=== PATIENT | male | born 1980 | race Caucasian/White ===

== ENCOUNTER 2022-01-29 09:00 | Emergency (ER) | payer OTHER, SELFPAY ==
--- NOTE | ~2022-01-29 | US_ITS ---
EXAMINATION: US VENOUS ULTRASOUND WITH DOPPLER LOWER EXTREMITY, LEFT CLINICAL INFORMATION: Left lateral calf pain and warmth. History of trauma. COMPARISON: None TECHNIQUE: Ultrasound of the deep veins is performed from the hip to the calf with compression sonography and color and pulse Doppler assessment. Spectral analysis with color-flow imaging is performed. FINDINGS: There is normal venous compression and respiratory variation and augmented flow. The visualized common femoral vein, superficial femoral vein, profunda femoral vein, popliteal vein, and the trifurcation region shows no evidence of deep venous thrombosis. There is no significant popliteal fossa cyst. There is a small hypoechoic area with septations in mid midcalf region where corresponding to the clinically palpable lump region. It most likely represents a small hematoma. If the patient's symptoms persist, followup ultrasound in 5 days 7 days might be of value to exclude proximal propagation from a non-visualized calf vein. US/US venous duplex LE IMPRESSION: No DVT demonstrated in the left lower extremity. There is a small hypoechoic area midcalf region corresponding to clinically palpable lump likely hematoma.
[2022-01-29 10:02] VITALS: BP 122/73; PULSE 65; RESP 18; TEMP 36.3; O2SAT 100; BMI 24.3
[2022-01-29 12:00] VITALS: BP 117/63; PULSE 63; RESP 18; TEMP 37.2; O2SAT 98
--- NOTE | 2022-01-29 12:48 | PC.NURSE ---
patient a&ox3, family at bedside, pt states he suffered a fall about a month ago, is awaiting surgery for left clavical fracture, pt states currently he still feels foggy and has left lower leg discomfort- not actual pain, pt states his left lower leg has a hard lump that occurred after his fall, this nurse assessed area noted to be a hard lump when palpated to left lower extremity- normal in color at this time, vitals currently stable, call manriquez within reach, will continue to monitor.
--- NOTE | 2022-01-29 13:11 | ED_ITS ---
HPI - General Adult General Chief complaint: General Medical Stated complaint: follow up on concussion Time Seen by Provider: 01/29/22 12:40 Source: patient Mode of arrival: ambulatory Limitations: no limitations History of Present Illness HPI narrative: 41-year-old male who presents with his mother for a head injury that occurred on 01/06/2022. Patient fell 15 ft from a ladder onto his head and had a positive lo ss of consciousness. He lost consciousness for minutes. It was a mechanical fall. Patient injured his left lower extremity and his left clavicle. Patient was seen at [facility] and had a noncontrast head CT, noncontrast CT of facial bones a noncontrast CT of cervical spine. There was no acute intracranial abnormality, no facial bone fracture, no acute osseous abnormality within the cervical spine A fracture of the lateral cuff lateral aspect of the left clavicle with displacement was demonstrated with x-ray. Chest x-ray was negative for any rib fracture, left lower extremity x-ray and ultrasound were negative for fracture and DVT SInce January 06, patient has had foggy thinking, difficulty remembering things, and increased fatigue. He feels mildly dizzy when he sits up but the dizziness goes away in a few seconds. His left leg was bruised 20 fell, now there is a hard painful lump in his left leg. Denies headache, nausea, vomiting, chest pain, shortness of breath, cough Pain he is scheduled for surgery of his left collarbone with [facility]. They have already seen and evaluated him for that Related Data Allergies Allergy/AdvReac Type Severity Reaction Status Date / Time No Known Allergies Allergy Verified 01/29/22 10:02 Review of Systems Constitutional: Constitutional: Denies body ache(s), Denies chills, Denies fatigue, Denies fever(s), Denies headache(s), Denies malaise and Denies weakness Eyes: Eyes: Denies diplopia and Denies loss of vision ENT: Denies vertigo, Reports dizziness, Denies otalgia, Denies headache(s), Denies mouth pain, Denies disequilibrium, Denies post nasal drip, Denies sinus pain, Denies sinus pressure, Denies sore throat and Denies throat swelling Cardiovascular: Cardiovascular: Denies chest pain, Denies syncope, Denies leg edema, Denies lightheadedness, Denies Loss of Consciousness, Denies palpitations and Denies dyspnea Respiratory: Respiratory: Denies chest congestion, Denies cough and Denies dyspnea Gastrointestinal: Gastrointestinal: Denies abdominal pain, Denies hematochezia, Denies constipation, Denies diarrhea and Denies vomiting Musculoskeletal: Musculoskeletal: Denies abnormal gait, Reports arthralgias and Denies tingling Neurologic: Denies Abnormal speech present, Denies abnormal gait, Denies confusion, Denies vertigo, Reports dizziness, Denies syncope, Denies headache(s), Denies lack of coordination, Denies focal weakness, Denies loss of vision, Reports memory loss, Denies seizure-like activity, Denies Sensory deficit (Neuro), Denies tingling, Denies paresthesias, Denies disequilibrium, Denies weakness and Reports other (Foggy thinking, forgetfulness) Psychiatric: Psychiatric: Denies anxiety, Denies confusion, Denies depression and Reports memory loss Endocrine: Endocrine: Denies fatigue and Denies palpitations Allergic/Immunologic: Allergic/Immunologic: Denies throat swelling PMFSH Social History Social History Advance Directives: No Advance Directives Information Provided: No Physical Exam ED Vital Signs: Vital Signs - 24 hr 01/29/22 10:02 01/29/22 12:00 01/29/22 15:30 Temperature 97.4 F 99.0 F 98.6 F Pulse Rate 65 63 77 Respiratory Rate 18 18 16 Blood Pressure 122/73 117/63 124/76 Pulse Oximetry 100 98 99 BMI result Body Mass Index 24.3 Const General: no acute distress and awake; No confusion Nutritional Appearance: well nourished Orientation/consciousness: patient oriented x3 and No confusion Limitations: no limitations [facility] Head: Yes normal to inspection, Yes normocephalic and Yes atraumatic Ears: hearing grossly normal bilaterally, external ears normal, TM's normal bilaterally and EAC's normal General nose exam: Normal external nose present Face and sinus: Yes normal facial exam and Yes sinuses nontender Mouth: Normal oral and palatal mucosa present Throat: Yes posterior oropharynx normal Eyes Conjunctivae: conjunctivae normal Pupils: Equal, round and reactive pupils present EOM: EOMs intact bilaterally Neck Neck: Yes full ROM, Yes no lymphadenopathy and Yes supple Chest Other: Tender to left ribs, negative chest x-ray done in December at [facility] Chest palpation & inspection: normal inspection of the chest Resp Effort & Inspection: normal respiratory effort and able to speak in complete sentences Auscultation: clear to auscultation bilaterally, no crackles, no rales, no rhonchi and no wheezes Cardio Rate: regular rate Rhythm: regular rhythm Heart sounds: S1 normal heart sound present and S2 normal heart sound present GI Inspection: Yes normal to inspection Palpation (GI): Soft to palpation, nontender, no guarding and not rigid Percussion: Yes normal to percussion Auscultation: normal bowel sounds Back/Spine/Pelvis Cervical Spine: normal cervical lordosis, cervical ROM normal, No Cervical spine tenderness, No step off deformity and No cervical ROM abnormal Thoracic/Lumbar Spine: No thoracic spinal tenderness and No lumbar spinal tenderness Skin Other: Warm, swollen lateral left calf Neuro General: patient oriented x3 and No confusion Cranial nerves: Yes CN's II-XII intact bilaterally, Yes Facial sensation intact/muscles of mastication intact, Yes Equal, round and reactive pupils present, Yes Normal accommodation reflex present, Yes Bilaterally intact EOM present, Yes Nystagmus not present, Yes Normal facial strength present, Yes Midline tongue present, Yes Ability to bilaterally rotate head present and Yes Ability to bilaterally elevate shoulders present Cognition (Neuro): normal cognition Speech: No Abnormal speech present Gait exam (Neuro): Normal gait present Motor exam (neuro): 5/5 motor strength present throughout and Pronator motor f unction not present Sensory Exam: No Sensory deficit (Neuro) Deep tendon reflexes (DTR's): Right patellar reflex intensity grade: 1+ and Left patellar reflex intensity grade: 1+ Coordination: [id number] test normal and [id number] test normal Romberg Test: Negative Pupils: Normal pupillary reactivity/response: bilateral Extrem Left upper extremity: normal capillary refill, no joint enlargement and shoulder/upper arm Details: inspection abnormal, tenderness and axillary nerve sensory function normal; Negative for no unsual warmth; No no edema Psych Appearance: grossly normal Affect: normal affect Attitude: cooperative Thought process: Normal thought process present Course Course Course Narrative: 41-year-old male who presents for foggy thinking, difficulty remembering things, and increased fatigue since he fell from a ladder on January 06. Patient was worked up at [facility], CT of facial bones, head, neck, left leg x-ray, all were negative. Patient has a left clavicle fracture. On exam, patient has a normal neurological exam, he is tender over his left clavicle and is guarding his left shoulder, he has a lump and warm area in his lateral left calf Will get ultrasounds, will refer to Neurology, discussed utility of re-imaging CT head/neck with Dr Wood, but Dr Wood stated if CT scans were negative, which they were, this is most likely post concussive syndrome Reevaluation(s) Reevaluation #1: US/US venous duplex LE LT IMPRESSION: No DVT demonstrated in the left lower extremity. ? There is a small hypoechoic area midcalf region corresponding to clinically palpable lump likely hematoma. Will have patient follow-up with neurology and follow-up with orthopedics as he is scheduled to do so Discharge Plan Discharge Clinical Impression: Post concussive syndrome Patient Disposition: Home, Self-Care Instructions: Post Concussion Syndrome (ED) Additional Instructions: Please follow-up with orthopedics as planned. Please call [phone], this is our neurologist at [facility], although I have referred you as well and they should be calling you. Please return to emergency room if you have worsening symptoms, chest pain, shortness of breath, or any other new or concerning symptoms Referrals: Casey Herron MD [Physician] -
--- NOTE | 2022-01-29 13:51 | PC.NURSE ---
ultrasound at bedside
[2022-01-29 15:30] VITALS: BP 124/76; PULSE 77; RESP 16; TEMP 37; O2SAT 99
== END 2022-01-29 15:45 | disposition home or self-care (01) ==
PROVIDERS: Emergency Provider Emergency Medicine
DX: F07.81 Postconcussional syndrome (principal); M79.662 Pain in left lower leg; S42.032D Displaced fracture of lateral end of left clavicle, subsequent encounter for fracture with routine healing; W11.XXXD Fall on and from ladder, subsequent encounter
CPT/HCPCS: 93971; 99284

== ENCOUNTER 2022-09-26 20:49 | Emergency (ER) | payer BC, SELFPAY ==
--- NOTE | ~2022-09-26 | XR_ITS ---
EXAMINATION: XR CHEST CLINICAL INFORMATION: Chest pressure COMPARISON: None TECHNIQUE: Frontal view of the chest was obtained. FINDINGS: No significant abnormality is noted involving the heart, lungs, mediastinum, bony thorax or soft tissues. XR/XR chest 1V IMPRESSION: Unremarkable examination.
[2022-09-26 20:54] VITALS: BP 126/74; PULSE 82; RESP 20; TEMP 37; O2SAT 100; BMI 24.3
--- NOTE | 2022-09-26 20:59 | ECG_ITS ---
Test Reason : chest pain Blood Pressure : / mmHG Vent. Rate : 080 BPM Atrial Rate : 080 BPM P-R Int : 134 ms QRS Dur : 100 ms QT Int : 370 ms P-R-T Axes : 063 069 066 degrees QTc Int : 426 ms Normal sinus rhythm with sinus arrhythmia Normal ECG No previous ECGs available Referred By: Generic ED Physician Electronically Signed By:MICKY PAIGE
[2022-09-26 21:27] LABS: Basophils Percent Auto 0.4 % (0-2); Eosinophils Absolute Auto 0.2 X10*3/uL (0.0-0.4); Hematocrit 42.5 % (42.0-52.0); Hemoglobin 14.7 g/dl (14.0-18.0); Imm Gran Abs Auto 0.03 X10*3/uL (0.00-0.03); Imm Gran Pct Auto 0.4 % (0.0-0.4); Lymphocytes Absolute Auto 2.4 X10*3/uL (1.2-4.9); Lymphocytes Percent Auto 28.4 % (20-40); MANUAL DIFF FLAG NO; Mean Corpuscular HGB Conc 34.6 g/dl (31.0-36.0); Mean Corpuscular Hemoglobin 32.7 pg (27.0-33.0); Mean Corpuscular Volume 94.7 fL (80.0-98.0); Mean Platelet Volume 9.7 fL (9.4-12.4); Monocytes Absolute Auto 0.7 X10*3/uL (0.1-1.2); Monocytes Percent Auto 8.2 % (2-11); Neutrophils Absolute Auto 5.1 x10*3/uL (2.0-8.3); Neutrophils Percent Auto 60.6 % (45-73); Platelet Count 236 X10*3/uL (160-400); Red Blood Count 4.49 X10*6/uL (4.60-5.80); Red Cell Distribution Width 12.4 % (11.0-16.0); White Blood Count 8.4 X10*3/uL (4.8-10.8)
[2022-09-26 21:39] LABS: Anion Gap 16 (12-20); Blood Urea Nitrogen 13 mg/dL (9-16); Calcium 9.8 mg/dL (8.4-10.2); Carbon Dioxide 25 mmol/L (22-29); Chloride 101 mmol/L (96-108); Creatinine Clr Calc Pharmacy 104.5; Estimated Glomerular Filt Rate > 60; Glucose Random 85 mg/dL (60-115); Potassium 3.9 mmol/L (3.3-5.1); Sodium 138 mmol/L (135-145)
[2022-09-26 21:44] LABS: COVID-19 Test Negative (Negative); IDNOW Serial# 16C4AD1C; IDNOW Serial# BCCEAD1C; Influenza A Negative (Negative); Influenza B2 Negative (Negative)
[2022-09-26 21:47] LABS: Troponin-I High Sensitivity < 3.5 ng/L (<3.5-35.0)
[2022-09-26 21:53] VITALS: BP 125/73; PULSE 66; RESP 16; O2SAT 98
[2022-09-26 22:38] VITALS: PULSE 87; RESP 16; O2SAT 97
--- NOTE | 2022-09-26 23:07 | ED.CHESTPAIN ---
HPI - Chest Pain General Chief Complaint: Chest Pain Stated Complaint: chest pain sore throat cough Time Seen by Provider: 09/26/22 21:35 Source: patient Mode of arrival: ambulatory History of Present Illness HPI narrative: This is a 42-year-old male who presents with 2-4 months of left-sided chest discomfort, most notably it is worse in the morning, he is an everyday heavy smoker with cough, no fevers/chills/night sweats/unexplained weight loss. Patient has not followed up with primary care provider because he is experiencing some difficulty with establishing care. Patient does endorse that he has previously fractured his left clavicle for which he required surgical intervention and since that time he has continued to have pain along that left shoulder into the base of his neck and the superior portion of the left anterior chest and he states that this has not changed. Related Data Previous Rx's Medication Instructions Recorded prednisone 50 mg tablet 50 mg PO DAILY 4 days #4 tabs 09/26/22 Allergies Allergy/AdvReac Type Severity Reaction Status Date / Time No Known Allergies Allergy Verified 09/26/22 20:59 Review of Systems Review of Systems: Pertinent positives and negatives as stated in HPI [facility] Past Medical History Source: nursing notes reviewed Social History Social History Alcohol intake: current Alcohol intake frequency: 0-2 drinks per day Alcohol type: beer Patient Tobacco Use Status: Current someday Tobacco user Smoked in Last 30 Days: Yes Use of substances other than those prescribed or required for medical reasons: Yes Substance Use Type: Marijuana Substance Use Frequency: Occasionally Advance Directives: No Advance Directives Information Provided: No Physical Exam Vital Signs: Vital Signs: Last Vital Signs Temp 98.6 F 09/26/22 20:54 Pulse 87 09/26/22 22:38 Resp 16 09/26/22 22:38 BP 125/73 09/26/22 21:53 Pulse Ox 98 09/26/22 21:53 O2 Del Method 09/26/22 21:53 BMI result Body Mass Index 24.3 VITAL SIGNS: Reviewed. GENERAL: Well developed, well nourished, in no acute distress. HEAD: Normocephalic/atraumatic EYES: PERRLA, EOMI EARS: Ext canals without abnormality OROPHARYNX: no oral lesions noted, posterior pharynx clear LUNGS: Normal breath sounds. No adventitious sounds or accessory muscle use. SpO2<98> CARDIOVASCULAR: Regular rate and rhythm without noted murmurs ABDOMEN: Soft, non-tender, non-distended with bowel sounds. MUSCULOSKELETAL: No tenderness, deformities, or effusions noted on gross inspection. EXTREMITIES: No cyanosis, clubbing or edema. SKIN: Inspection of the skin reveals no rashes NEUROLOGIC: Alert and oriented x 4. Strength and sensation to light touch were grossly intact x 4. Medications Administered Discontinued Medications Generic Name Dose Route Start Last Admin Trade Name Freq PRN Reason Stop Dose Admin Albuterol Sulfate 5 mg/ 0 mg 09/26/22 22:27 09/26/22 22:34 Ipratropium [place] 0.5 mg INHALE 09/26/22 22:28 1 each ONCE ONE Administration Medical Decision Making Medical Decision Making [facility] Narrative: PERC negative Heart score-1 42-year-old male with chronic left chest pain and a heavy smoker and no constitutional symptoms to suggest infectious etiology, atypical in nature and low clinical suspicion for cardiac etiology, patient has not been to see a physician in quite a while and suspect that he may be developing underlying COPD although there is no evidence hypoxia and suspected overlying component regional pain as he describes since the left clavicular fracture. I have reviewed and interpreted all workup as being negative for evidence of infection, anemia, electrolyte/renal dysfunction, troponin and EKG are inconsistent with underlying cardiac etiology. I did give the patient a DuoNeb treatment and on re-evaluation he is feeling much better and is otherwise discharged home in stable condition with suspicion that he is developing chronic lung disease and requires further outpatient management. Patient did receive a list of primary care clinics associated with [facility]. Differential Diagnosis Differential Diagnoses: The differential diagnosis associated with the presentation includes Please see discussion above Lab Data [facility] Lab Attestation statement: I reviewed the patient's lab results. Please see discussion above 09/26/22 21:18 09/26/22 21:18 Labs: Lab Results 09/26/22 09/26/22 09/26/22 Range/Units 21:18 21:18 21:18 WBC 8.4 (4.8-10.8) X10*3/uL RBC 4.49 L (4.60-5.80) X10*6/uL Hgb 14.7 (14.0-18.0) g/dl Hct 42.5 (42.0-52.0) % MCV 94.7 (80.0-98.0) fL MCH 32.7 (27.0-33.0) pg MCHC 34.6 (31.0-36.0) g/dl RDW 12.4 (11.0-16.0) % Plt Count 236 (160-400) X10*3/uL MPV 9.7 (9.4-12.4) fL Immature Gran % (Auto) 0.4 (0.0-0.4) % Neut % (Auto) 60.6 (45-73) % Lymph % (Auto) 28.4 (20-40) % [place] % (Auto) 8.2 (2-11) % Eos % (Auto) 2.0 (0-4) % Baso % (Auto) 0.4 (0-2) % Lymph # (Auto) 2.4 (1.2-4.9) X10*3/uL [place] # (Auto) 0.7 (0.1-1.2) X10*3/uL Eos # (Auto) 0.2 (0.0-0.4) X10*3/uL Baso # (Auto) 0.0 (0.0-0.2) X10*3/uL Abs Immat Gran (auto) 0.03 (0.00-0.03) X10*3/uL Absolute Neuts (auto) 5.1 (2.0-8.3) x10*3/uL Absolute Nucleated RBC 0.000 (0.0-0.012) X10*3/uL Nucleated RBC % (auto) 0.0 (0.0-0.2) /100WBC Sodium 138 (135-145) mmol/L Potassium 3.9 (3.3-5.1) mmol/L Chloride 101 (96-108) mmol/L Carbon Dioxide 25 (22-29) mmol/L Anion Gap 16 (12-20) BUN 13 (9-16) mg/dL Creatinine 1.13 (0.5-1.4) mg/dL Estim Creat Clear Calc 104.5 Estimated GFR > 60 Random Glucose 85 (60-115) mg/dL Calcium 9.8 (8.4-10.2) mg/dL Troponin I High Sens < 3.5 (<3.5-35.0) ng/L COVID-19 (ARCELIA) (Negative) COVID-19 Clin Com Influenza Type A (ALEJA) (Negative) Influenza Type B (ALEJA) (Negative) Influenza A & B Note 09/26/22 09/26/22 Range/Units 21:20 21:20 WBC (4.8-10.8) X10*3/uL RBC (4.60-5.80) X10*6/uL Hgb (14.0-18.0) g/dl Hct (42.0-52.0) % MCV (80.0-98.0) fL MCH (27.0-33.0) pg MCHC (31.0-36.0) g/dl RDW (11.0-16.0) % Plt Count (160-400) X10*3/uL MPV (9.4-12.4) fL Immature Gran % (Auto) (0.0-0.4) % Neut % (Auto) (45-73) % Lymph % (Auto) (20-40) % [place] % (Auto) (2-11) % Eos % (Auto) (0-4) % Baso % (Auto) (0-2) % Lymph # (Auto) (1.2-4.9) X10*3/uL [place] # (Auto) (0.1-1.2) X10*3/uL Eos # (Auto) (0.0-0.4) X10*3/uL Baso # (Auto) (0.0-0.2) X10*3/uL Abs Immat Gran (auto) (0.00-0.03) X10*3/uL Absolute Neuts (auto) (2.0-8.3) x10*3/uL Absolute Nucleated RBC (0.0-0.012) X10*3/uL Nucleated RBC % (auto) (0.0-0.2) /100WBC Sodium (135-145) mmol/L Potassium (3.3-5.1) mmol/L Chloride (96-108) mmol/L Carbon Dioxide (22-29) mmol/L Anion Gap (12-20) BUN (9-16) mg/dL Creatinine (0.5-1.4) mg/dL Estim Creat Clear Calc Estimated GFR Random Glucose (60-115) mg/dL Calcium (8.4-10.2) mg/dL Troponin I High Sens (<3.5-35.0) ng/L COVID-19 (ARCELIA) Negative (Negative) COVID-19 Clin Com See Note Influenza Type A (ALEJA) Negative (Negative) Influenza Type B (ALEJA) Negative (Negative) Influenza A & B Note See Note Independent Interpretation I performed an independent interpretation of an: EKG Interpretation: Normal sinus rhythm, HR-80, no STEMI, NC/QRS/QTC is within normal limits Radiology Impression Radiologist Impression: My interpretation is in agreement with radiology's impression imaging study. In addition, chest x-ray looks mildly suggestive of underlying chronic lung changes Discharge Plan Discharge Clinical Impression: Atypical chest pain, Cigarette smoker Patient Disposition: Home, Self-Care Instructions: Chest Pain (ED), How to Stop Smoking (ED), COPD (Chronic Obstructive Pulmonary Disease) (ED) Additional Instructions: 1. You have been discharged with a short course of steroids as well as an inhaler that you should use as needed for shortness of breath. 2. You have been provided with a list of primary care providers that are associated with the [facility], please feel free to reach out on Wednesday morning to set up an appointment for further care. Return to the ER for any worsening symptoms. Prescriptions: New prednisone 50 mg tablet 50 mg PO DAILY 4 Days Qty: 4 0RF
[2022-09-26 23:53] VITALS: BP 133/73; PULSE 71; RESP 16; TEMP 36.8; O2SAT 97
[2022-09-27] MEDS: predniSONE 10 MG TABLET 50 MG PO (00:03)
[2022-09-27] MEDS: Albuterol Sulfate 90 MCG 8 GM INHALER 2 PUFF INHALE (00:10)
== END 2022-09-27 00:14 | disposition home or self-care (01) ==
PROVIDERS: Emergency Provider Student in an Organized Health Care Education/Training Program
DX: R07.89 Other chest pain (principal); F17.210 Nicotine dependence, cigarettes, uncomplicated; F12.90 Cannabis use, unspecified, uncomplicated; Z20.822 Contact with and (suspected) exposure to COVID-19; Z20.828 Contact with and (suspected) exposure to other viral communicable diseases
CPT/HCPCS: 36415; 71045; 80048; 84484; 85025; 87502; 87635; 93005; 94640; 99285

== ENCOUNTER 2022-11-26 07:35 | Outpatient (REF) | payer BC, SELFPAY ==
[2022-11-26 12:06] LABS: Hematocrit 49.3 % (42.0-52.0); Hemoglobin 16.2 g/dl (14.0-18.0); Mean Corpuscular HGB Conc 32.9 g/dl (31.0-36.0); Mean Corpuscular Hemoglobin 31.6 pg (27.0-33.0); Mean Corpuscular Volume 96.1 fL (80.0-98.0); Mean Platelet Volume 10.2 fL (9.4-12.4); Platelet Count 296 X10*3/uL (160-400); Red Blood Count 5.13 X10*6/uL (4.60-5.80); Red Cell Distribution Width 12.6 % (11.0-16.0); White Blood Count 7.3 X10*3/uL (4.8-10.8)
[2022-11-26 15:55] LABS: Alanine Aminotransferase 29 U/L (0-40); Albumin Level 4.6 g/dL (3.5-5.0); Alkaline Phosphatase 65 U/L (39-117); Anion Gap 15 (12-20); Aspartate Amino Transferase 22 U/L (5-37); Bilirubin Total 0.5 mg/dL (0.0-1.0); Blood Urea Nitrogen 23 mg/dL (9-16); Calcium 9.5 mg/dL (8.4-10.2); Carbon Dioxide 27 mmol/L (22-29); Chloride 104 mmol/L (96-108); Cholesterol 249 mg/dL; Estimated Glomerular Filt Rate > 60; Glucose Fasting 89 mg/dL (60-99); HDL Cholesterol 57 mg/dL; LDL Cholesterol Calculated 164 mg/dl; Potassium 4.5 mmol/L (3.3-5.1); Sodium 141 mmol/L (135-145); Total Protein 7.3 g/dL (6.5-8.0); Triglycerides 144 mg/dL
[2022-11-26 15:59] LABS: TSH reflex Free T4 2.02 uIU/mL (0.32-4.0)
== END 2022-11-26 07:36 | disposition home or self-care (01) ==
LOC: HO.WFDLDS 07:35
PROVIDERS: Visit Provider Nurse Practitioner Family
DX: Z00.00 Encounter for general adult medical examination without abnormal findings (principal); Z20.2 Contact with and (suspected) exposure to infections with a predominantly sexual mode of transmission
CPT/HCPCS: 36415; 80053; 80061; 84443; 85027

== ENCOUNTER 2023-01-04 10:21 | Outpatient (REF) | payer BC, SELFPAY ==
[2023-01-04 12:28] LABS: HBc Num1 0.09 S/CO (0.00-0.79); HBsAGNum1 0.34 S/CO (0.00-0.99); HIV AB/AG Nonreactive (Nonreactive); HIV Num 1 0.06 S/CO (0.00-0.99); Hepatitis B Core Antibody Nonreactive (Nonreactive); Hepatitis B Surface Antigen Negative (Negative); ~HepC Num1 0.16 S/CO (0.00-0.79); ~Hepatitis B Surface Antibody NONREACTIVE (Nonreactive); ~Hepatitis C Antibody Nonreactive (Nonreactive)
[2023-01-04 12:30] LABS: Syphilis Screen Nonreactive (Nonreactive)
[2023-01-04 13:07] LABS: CT PCR NOT DETECTED (Not Detect.); NG PCR NOT DETECTED (Not Detect.)
== END 2023-01-04 10:22 | disposition home or self-care (01) ==
LOC: HO.WFDLDS 10:21
PROVIDERS: Visit Provider Nurse Practitioner Family
DX: Z11.4 Encounter for screening for human immunodeficiency virus [HIV] (principal); Z20.2 Contact with and (suspected) exposure to infections with a predominantly sexual mode of transmission
CPT/HCPCS: 0353U; 86704; 86706; 86780; 86803; 87340; 87389

== ENCOUNTER 2023-04-02 14:49 | Outpatient (AMB) | payer OTHER, SELFPAY ==
--- NOTE | 2023-04-02 14:53 | MHC.OFFVIS ---
Intake Vital Signs 04/02/23 15:02 BP 126/82 Blood Pressure Location Lt radial Position Sitting Pulse 80 Pulse Source Pulse Oximeter Pulse Oximetry (%) 95 Oxygen Delivery Method Room Air Intake Visit Reasons: MAT Intake Intake Note: the patient is here for a mat intake Political Reporter Required: No Allergies No Known Allergies Allergy (Verified 04/02/23 14:53) Do you need a note to return to daycare/school/sports/work: No HPI MAT Intake HPI Details Patient presents for intake and evaluation of alcohol use referred by PCP alligator trapper reviewed which includes substance use history Initially patient guarded and stated he was only here to see my options Currently on medical leave from work due to increase in drinking and stress associated with that providers in place Declines ATS referral Discussed PHP as an option in addition to Naltrexone to start to address alcohol use. Patient interested in this and will follow up with PHP Medical history Accident one year ago fell 15 feet on his head and had a seizure Family history of ETOH PFSH Medical History (Updated 03/16/23 @ 15:56 by Srini Deutsch CNP) Anxiety Depression No known health problems Surgical History (Updated 03/15/23 @ 16:17 by Emilie Lemon MA) History of open reduction and internal fixation (ORIF) procedure Family History Mother Alcoholism Father Alcoholism Social History Housing: House Alcohol intake: current Alcohol intake frequency: 0-2 drinks per day Alcohol type: beer Patient Tobacco Use Status: Current someday Tobacco user Tobacco use type: Cigarette e-Cigarette/Vaping Use: Never Used Substance Use Type: Marijuana service: No Current occupational status: employed Cognitive needs: No Hearing needs: No Vision needs: No Review of Systems Const Reports as per HPI Physical Exam Vital Signs: Last Vital Signs Pulse 80 04/02/23 15:02 BP 126/82 04/02/23 15:02 Pulse Ox 95 04/02/23 15:02 Oxygen Delivery Method Room Air 04/02/23 15:02 Const General: cooperative and anxious Assessment & Plan Assessment & Plan (1) Alcohol dependence: Code(s): F10.20 - Alcohol dependence, uncomplicated Plan: naltrexone 50mg QD patient to follow up with PHP risk reduction discussion follow up 3 weeks Medications: New naltrexone take 1/2 tab daily for 3 days then increase to one tab daily 50 mg PO DAILY 30 tabs 1RF Coding Level of Care Code New Pt Level 4 (28535) Diagnoses Alcohol dependence F10.20
[2023-04-02 15:02] VITALS: BP 126/82; PULSE 80; O2SAT 95
== END 2023-04-02 16:00 | disposition home or self-care (01) ==
LOC: HO.HCC 14:49
PROVIDERS: PCP Nurse Practitioner Family; Visit Provider Nurse Practitioner Psychiatric/Mental Health
DX: F10.20 Alcohol dependence, uncomplicated (principal)
CPT/HCPCS: 99204

== ENCOUNTER → 2023-04-02 14:49 | Outpatient (BNVA) | payer OTHER, SELFPAY | PROVIDERS: PCP Nurse Practitioner Family; Visit Provider Nurse Practitioner Psychiatric/Mental Health ==

== ENCOUNTER 2023-04-20 09:26 | Outpatient (AMB) | payer OTHER, SELFPAY ==
--- NOTE | 2023-04-20 09:35 | A.OFFVIS_ITS ---
Intake Vital Signs 04/20/23 09:44 BP 108/70 Blood Pressure Location Lt radial Position Sitting Pulse 59 Pulse Source Pulse Oximeter Pulse Oximetry (%) 99 Oxygen Delivery Method Room Air Intake Visit Reasons: MAT Visit Intake Note: The patient presents for a mat visit Mobile Sales Consultant Required: No Allergies No Known Allergies Allergy (Verified 04/02/23 14:53) Do you need a note to return to daycare/school/sports/work: No HPI MAT Visit HPI Details Patient presents for AUD treatment follow up Tolerating Naltrexone --finds it helpful with reducing alcohol intake Down to 2 beers per day (previously drinking 10-12 beers per night) Did not start PHP--reports he was told he did not qualify Still attending therapy weekly Would like to attend in on IOP or some other sort of program. [facility] Medical History (Updated 03/16/23 @ 15:56 by Srini Deutsch CNP) Anxiety Depression No known health problems Surgical History (Updated 03/15/23 @ 16:17 by Emilie Lemon MA) History of open reduction and internal fixation (ORIF) procedure Family History Mother Alcoholism Father Alcoholism Social History Housing: House Alcohol intake: current Alcohol intake frequency: 0-2 drinks per day Alcohol type: beer Patient Tobacco Use Status: Current someday Tobacco user Tobacco use type: Cigarette e-Cigarette/Vaping Use: Never Used Substance Use Type: Marijuana service: No Current occupational status: employed Cognitive needs: No Hearing needs: No Vision needs: No Review of Systems Const Reports as per HPI and Reports no additional complaints Physical Exam Vital Signs: Last Vital Signs Pulse 59 04/20/23 09:44 BP 108/70 04/20/23 09:44 Pulse Ox 99 04/20/23 09:44 Oxygen Delivery Method Room Air 04/20/23 09:44 Const General: cooperative, healthy appearing and no acute distress Psych Appearance: well kempt Speech and movement: Clear speech present Thought process: Normal thought process present Thought content: Normal thought content present Insight: Good insight present (Psych) Judgement: Good judgement present (Psych) Assessment & Plan Assessment & Plan (1) Alcohol dependence: Code(s): F10.20 - Alcohol dependence, uncomplicated Plan: * continue Naltrexone at current dose * Referral to be placed to [facility] * Follow up 2 weeks Coding Level of Care Code Est Pt Level 4 (92682) Diagnoses Alcohol dependence F10.20
[2023-04-20 09:44] VITALS: BP 108/70; PULSE 59; O2SAT 99
== END 2023-04-20 10:15 | disposition home or self-care (01) ==
LOC: HO.HCC 09:26
PROVIDERS: PCP Nurse Practitioner Family; Visit Provider Nurse Practitioner Psychiatric/Mental Health
DX: F10.20 Alcohol dependence, uncomplicated (principal)
CPT/HCPCS: 99214

== ENCOUNTER → 2023-04-20 09:26 | Outpatient (BNVA) | payer OTHER, SELFPAY | PROVIDERS: PCP Nurse Practitioner Family; Visit Provider Nurse Practitioner Psychiatric/Mental Health ==

== ENCOUNTER 2023-04-28 14:47 | Outpatient (AMB) | payer OTHER, SELFPAY ==
--- NOTE | 2023-04-28 14:57 | A.OFFVIS_ITS ---
Intake Intake Visit Reasons: STI Intake Note: New Patient presents for initial visit today for penile lesion Urology Medications: none Blood Thinner: none Plastic Surgery Assistant Required: No Accompanied by: Self / Same As Patient Allergies No Known Allergies Allergy (Verified 04/28/23 15:42) Medication List - Last Reconciled 04/28/23 by ANGIE Polanco naltrexone 50 mg PO DAILY varenicline PO PER PKG DIR HPI HPI Comments History of Present Illness Details Santos is a very pleasant 43-year-old male patient of Dr. Deutsch. He has a past medical history of anxiety and depression. He presents to the office today as a new patient for genital warts. In discussion with the patient today he reports noting one area of over growth to left side of the shaft of his penis over 10-15 years. However feels growth has increased in size over the last few years and is inquiring treatment. He otherwise denies any urinary issues. When asked he denies urinary urgency, urinary frequency, incontinence, nocturia, hematuria, dysuria, foul smelling urine, changes to urinary stream, flank pain, fever, and or chills. He is happy with his current voiding parameters. In assessment of the patient today one epidermal lesion approximately 5 mm in size noted to the left side of the shaft/base of the penis. Discussed obtaining HPV immunization. Discussed trimming verses shaving in genital area. In office urinalysis results reviewed with the patient today. He otherwise offers no issues or concerns at this time. [facility] Medical History Anxiety Depression No known health problems Surgical History History of open reduction and internal fixation (ORIF) procedure Family History Mother Alcoholism Father Alcoholism Social History Housing: House Alcohol intake: current Alcohol intake frequency: 0-2 drinks per day Alcohol type: beer Patient Tobacco Use Status: Current someday Tobacco user Tobacco use type: Cigarette e-Cigarette/Vaping Use: Never Used Substance Use Type: Marijuana service: No Current occupational status: employed Cognitive needs: No Hearing needs: No Vision needs: No Review of Systems Const All systems reviewed & are unremarkable except as noted in HPI and below Eyes Reports no additional complaints ENT Reports no additional complaints Card Reports no additional complaints Resp Reports no additional complaints GI Reports no additional complaints Reports as per HPI Musc Reports no additional complaints Neuro Reports no additional complaints Psych Reports as per HPI Endo Reports no additional complaints Josh/Lymph Reports no additional complaints Aller/Immun Reports no additional complaints Physical Exam Const General: cooperative, healthy appearing, comfortable, no acute distress, well developed, alert and awake Nutritional Appearance: average body habitus Orientation/consciousness: patient oriented x3 Limitations: no limitations HEENT Head: Yes normal to inspection, Yes normocephalic and Yes atraumatic Ears: hearing grossly normal bilaterally Eyes General: appearance normal, both eyes and all related structures Neck Neck: Yes normal visual inspection and Yes trachea midline Chest Chest palpation & inspection: normal inspection of the chest Resp Effort & Inspection: normal respiratory effort and able to speak in complete sentences Cardio Rate: regular rate GI Inspection: Yes normal to inspection Other: as noted in HPI General: Yes no CVA tenderness Back/Spine/Pelvis Back: no CVA tenderness Skin General skin exam: no rashes or lesions noted Neuro General: patient oriented x3 Extrem General: Yes normal to inspection Psych Appearance: grossly normal and well kempt Mental Status: mental status grossly normal Speech and movement: Normal speech and movement present and Clear speech present Affect: normal affect Attitude: cooperative Thought process: Normal thought process present Thought content: Normal thought content present Insight: Good insight present (Psych) Judgement: Good judgement present (Psych) Results AMB Urinalysis, Automated UA Leukoctes 0 Uriel/uL Last Edit by YOLLEGE on 04/28/23 15:16 UA Nitrite Last Edit by YOLLEGE on 04/28/23 15:16 UA Urobilinogen 0.2 mg/dL Last Edit by YOLLEGE on 04/28/23 15:16 UA Protein 0 mg/dL Last Edit by YOLLEGE on 04/28/23 15:16 UA pH 6.0 Last Edit by YOLLEGE on 04/28/23 15:16 UA Blood 0 Yg/uL Last Edit by YOLLEGE on 04/28/23 15:16 UA Specific [place] 1.005 Last Edit by Srikanth Peraza on 04/28/23 15:16 UA Ketone Negative Last Edit by Srikanth Peraza on 04/28/23 15:16 UA Bilirubin 0 mg/dL Last Edit by Srikanth Clancymichelle on 04/28/23 15:16 UA Glucose 0 mg/dL Last Edit by Srikanth Clancymichelle on 04/28/23 15:16 Results Reviewed Results Reviewed: Laboratory Last Values Urine pH (Auto) 6.0 04/28/23 14:59 Specific [place] (Auto) 1.005 04/28/23 14:59 Urine Protein (Auto) 0 mg/dL 04/28/23 14:59 Glucose (UA)(Auto) 0 mg/dL 04/28/23 14:59 Urine Ketones (Auto) Negative 04/28/23 14:59 Urine Blood (Auto) 0 Yg/uL 04/28/23 14:59 Urine Bilirubin (Auto) 0 mg/dL 04/28/23 14:59 Urine Urobilinogen (Auto) 0.2 mg/dL 04/28/23 14:59 Leukocyte Esterase (Auto) 0 Uriel/uL 04/28/23 14:59 Assessment & Plan Assessment & Plan (1) Genital lesion, male: Code(s): N50.89 - Other specified disorders of the male genital organs (2) Warts, genital: Code(s): A63.0 - Anogenital (venereal) warts Plan In office urinalysis results reviewed with the patient today; as noted above. Patient with one epidermal lesion approximately 5 mm in size noted to the left side of the shaft/base of the penis. Discussed removal of lesion/wart at length Discussed immunization of HPV Discussed trimming verses shaving in genital area. Dr. Olson in to assess Plan for excision of lesion with local anesthetic in minor surgery; discussed risks and benefits All questions were answered Follow up s/p Dr. Olsons order's; or sooner with any questions, concerns, and or issues. Orders: Orders AMB Urinalysis Automated 04/28/23 Z13.9 - Encounter for screening, unspecified Patient Instructions: The patient had an opportunity to ask questions regarding the treatment plan. All questions were answered. Physical exam, labs, and imaging were discussed and reviewed in detail. As well as risks, benefits, and discussion of treatment choices. No major barriers to understanding were identified. The patient expressed understanding and agreement with the above treatment plan. The patient was made aware they should contact our office by phone for worsening of their current condition, the appearance of new symptoms, or with any questions or concerns. Compliance is encouraged with any medications and follow up testing that is ordered. It is a privilege to be allowed the opportunity to participate in? your urological care.? Again, if you have any questions or concerns If you have any questions or concerns please do not hesitate to contact me. The office is [phone]. This note is constructed using voice recognition software. While every effort has been made to ensure accuracy rail grinder errors may have been included. Yours sincerely, SOURAV Polanco-PETE Coding Level of Care Code New Pt Level 3 (21330) Diagnoses Genital lesion, male N50.89 Warts, genital A63.0
== END 2023-04-28 15:38 | disposition home or self-care (01) ==
PROVIDERS: PCP Nurse Practitioner Family; Visit Provider Nurse Practitioner Family
DX: N50.89 Other specified disorders of the male genital organs (principal); A63.0 Anogenital (venereal) warts
CPT/HCPCS: 99203

== ENCOUNTER → 2023-04-28 14:47 | Outpatient (BNVA) | payer OTHER, SELFPAY | PROVIDERS: PCP Nurse Practitioner Family; Visit Provider Nurse Practitioner Family ==

== ENCOUNTER 2023-06-10 07:33 | Outpatient (REF) | payer OTHER, SELFPAY ==
[2023-06-10 12:15] LABS: Cholesterol 196 mg/dL (<200); HDL Cholesterol 69 mg/dL (>40); LDL Cholesterol Calculated 109 mg/dL (<100); Triglycerides 90 mg/dL (<150)
== END 2023-06-10 07:34 | disposition home or self-care (01) ==
LOC: HO.WFDLDS 07:33
PROVIDERS: Visit Provider Nurse Practitioner Family
DX: E78.00 Pure hypercholesterolemia, unspecified (principal)
CPT/HCPCS: 36415; 80061

== ENCOUNTER 2023-06-16 16:07 | Outpatient (AMB) | payer OTHER, SELFPAY ==
--- NOTE | 2023-06-16 16:11 | A.OFFPC_ITS ---
Vital Signs 06/16/23 16:13 Height 6 ft 4 in Weight 198 lb 6 oz BMI 24.1 BP 128/68 Blood Pressure Location Rt brachial Position Sitting Respiration 12 Pulse 107 H Pulse Source Pulse Oximeter Temp 97.5 F Temp Source Temporal Artery Scan Pulse Oximetry (%) 97 Oxygen Delivery Method Room Air Intake Visit Reasons: 3 mos anxiety, depression Asbestos Coverer Required: No Accompanied by: Self / Same As Patient Allergies No Known Allergies Allergy (Verified 06/16/23 16:29) Tobacco use date assessed: 03/15/23 Dental Screening Dental Screen Date: 06/16/23 Did you have a dental visit in the last 12 months?: Yes Did you have a dental problem in the last 6 months where you did not have access to dental care?: No Was dental information given to patient?: Patient has dentist HPI HPI Comments History of Present Illness Details 43-year-old male presents for anxiety an d depression follow-up He notes he has been seeing his therapist weekly and found that to be very effective in managing his symptoms. He does not wish to initiate medication treatment. He states that he tried psychotropic medications in the past and failed. He admits to drinking more alcohol that before; he has been drinking 15-18 beers daily for the past 1 month. He states that I am an alcoholic and I know it. He was referred to [facility] addiction medication; states he stopped going because he did not have his FMLA to have time away from work while being treated. He notes he intends to take time off from work next year and try and help patient addiction medicine program for his alcohol dependence. He denies acute symptoms at this time. [facility] Medical History Depression Anxiety No known health problems Surgical History History of open reduction and internal fixation (ORIF) procedure Family History Mother Alcoholism Father Alcoholism Social History Housing: House Alcohol intake: current Alcohol intake frequency: 0-2 drinks per day Alcohol type: beer Patient Tobacco Use Status: Current someday Tobacco user Tobacco use type: Cigarette e-Cigarette/Vaping Use: Never Used Substance Use Type: Marijuana service: No Current occupational status: employed Cognitive needs: No Hearing needs: No Vision needs: No Questionnaire PHQ-9 Over the last 2 weeks, how often have you been bothered by any of the following problems? 1. Little interest or pleasure in doing things: more than half the days 2. Feeling down, depressed, or hopeless: more than half the days 3. Trouble falling or staying asleep, or sleeping too much: more than half the days 4. Feeling tired or having little energy: more than half the days 5. Poor appetite or overeating: more than half the days 6. Feeling bad about yourself - or that you are a failure or have let yourself or your family down: more than half the days 7. Trouble concentrating on things, such as reading the newspaper or watching television: more than half the days 8. Moving or speaking so slowly that other people could have noticed. Or the opposite - being so fidgety or restless that you have been moving around a lot more than usual: more than half the days 9. Thoughts that you would be better off or of hurting yourself in some way: not at all Total score: 16 Depression Screening Interpretation: Positive Depression Screening Follow-up: Existing condition and In treatment Source: Developed by Drs. Jesse Hackett, Dina Colon, Grant Hassan and colleagues, with an educational sabrina from [employer]. Thrive Questionnaire Date Thrive assessed: 11/24/22 JUVENTINO-7 AMB Questionnaire JUVENTINO-7 Date JUVENTINO - 7 assessed: 03/15/23 Feeling nervous, anxious, or on edge: 2 = More than half the days Not being able to stop or control worryin = More than half the days Worrying too much about different things: 2 = More than half the days Trouble relaxin = More than half the days Being so restless that it is hard to sit still: 2 = More than half the days Becoming easily annoyed or irritable: 2 = More than half the days Feeling afraid as if something awful might happen: 2 = More than half the days Total JUVENTINO-7 score (0-4 normal; 5-9 mild; 10-14 moderate; 15-21 severe): 14 Source: Developed by Dina ZapataW. Isaiah, Grant Hassan and colleagues, with an educational sabrina from [employer]. Review of Systems Const Details: Const Denies chills, Denies fatigue, Denies fever(s), Denies headache(s) and Denies weakness ENT Denies dizziness and Denies headache(s) Card Denies chest pain, Denies lightheadedness, Denies dyspnea and Denies other (Palpitations) Resp Denies cough, Denies dyspnea, Denies wheezing and Denies other ( shortness of breath) GI Denies abdominal pain, Denies melena, Denies hematochezia, Denies change in bowel habits, Denies dyspepsia and Denies nausea Denies hematuria and Denies dysuria Musc Denies abnormal gait, Denies myalgias, Denies arthralgias, Denies numbness and Denies tingling Skin/Breast Denies rash, Denies unusual bruising and Denies wounds Neuro Denies abnormal gait, Denies dizziness, Denies headache(s), Denies memory loss, Denies numbness, Denies Sensory deficit (Neuro), Denies tingling and Denies weakness Psych Denies anxiety, Denies depression, Denies memory loss Endo Denies cold intolerance, Denies fatigue, Denies heat intolerance, Denies polydipsia and Denies polyuria Aller/Immun Denies wheezing Physical exam (Primary Care) Vital Signs: Last Vital Signs Temp 97.5 F 06/16/23 16:13 Pulse 107 H 06/16/23 16:13 Resp 12 06/16/23 16:13 BP 128/68 06/16/23 16:13 Pulse Ox 97 06/16/23 16:13 Oxygen Delivery Method Room Air 06/16/23 16:13 BMI result Body Mass Index 24.1 Tobacco/Smoking Status: Tobacco use Status Tobacco use date assessed 03/15/23 06/16/23 16:23 Patient Tobacco Use Status Current someday Tobacco 06/16/23 16:23 Tobacco use type Cigarette 06/16/23 16:23 e-Cigarette/Vaping Use Never Used 06/16/23 16:23 PHQ-9: PHQ-9 Score PHQ-9: Total score 16 06/16/23 16:23 Depression Screening Interpretation: Positive Depression Screening Follow-up: Existing condition and In treatment Thrive Assessment: Date of Thrive Assessment Date Thrive assessed 11/24/22 06/16/23 16:23 Const Other: General: no acute distress and well developed Nutritional Appearance: well nourished Orientation/consciousness: patient oriented x3 [facility] Head: Yes normocephalic and Yes atraumatic Eyes General: appearance normal, both eyes and all related structures Pupils: Equal, round and reactive pupils present EOM: EOMs intact bilaterally Resp Effort & Inspection: normal respiratory effort Auscultation: clear to auscultation bilaterally Cardio Rate: regular rate Rhythm: regular rhythm Heart sounds: S1 normal heart sound present, S2 normal heart sound present, no gallops, no murmurs and no rubs GI Palpation (GI): No Abdominal aortic bruit present, Soft to palpation, nontender, No hepatosplenomegaly present and No Rebound tenderness present Auscultation: normal bowel sounds General: Yes no CVA tenderness Back/Spine/Pelvis Back: no CVA tenderness Cervical Spine: cervical ROM normal and No Cervical spine tenderness Thoracic/Lumbar Spine: thoraco-lumbar ROM normal, No pain with thoraco-lumbar ROM, No thoracic spinal tenderness and No lumbar spinal tenderness Extrem General: Yes normal to inspection, No edema and No calf tenderness Skin General: warm and dry. Normal skin color. Normal skin turgor Lesions: no lesions Rashes: no rashes Trauma: no lacerations or abrasions Wounds: no wounds Nails: normal Neuro General: patient oriented x3, gait normal and no focal neuro deficit Cranial nerves: Yes Equal, round and reactive pupils present Cognition (Neuro): normal cognition Gait exam (Neuro): Normal gait present Sensory Exam: No Sensory deficit (Neuro) Psych Appearance: grossly normal Affect: normal affect Attitude: cooperative Thought process: Normal thought process present Assessment and Plan Assessment & Plan (1) Situational mixed anxiety and depressive disorder: Code(s): F43.23 - Adjustment disorder with mixed anxiety and depressed mood Plan: His PHQ-9 and JUVENTINO-7 scores revealed moderately severe depression and moderate anxiety respectively Continue to follow up with therapist as planned Routine exercise encouraged Declines medication treatment at this time Follow-up with PCP with worsening or new symptoms Verbalized understanding and agreed with treatment plan. (2) Hypercholesteremia: Code(s): E78.00 - Pure hypercholesterolemia, unspecified Plan: His lipid levels significantly improved from previous levels. Current triglyceride level is 90, total cholesterol, 196, LDL 109, and HDL 69 He notes he has been making healthy dietary choices Advised to limit foods high in saturated fat and avoid foods high trans fat Routine exercise encouraged Verbalized understanding and agreed with plan. (3) Alcohol dependence: Code(s): F10.20 - Alcohol dependence, uncomplicated Plan: He admits to drinking more alcohol that before; he has been drinking 15-18 beers daily for the past 1 month. He states that I am an alcoholic and I know it. He was referred to [facility] addiction medication; states he stopped going because he did not have his FMLA to have time away from work while being treated. He notes he intends to take time off from work next year and try and help patient addiction medicine program for his alcohol dependence. Instructed on the health risks and complication of excessive alcohol intake Advised to cut down or avoid alcohol consumption He may notify his PCP for a new referral to addiction medicine if he wants to try again Verbalized understanding and agreed with the plan. Coding Level of Care Code Est Pt Level 3 (35938) Diagnoses Situational mixed anxiety and depressive disorder F43.23 Hypercholesteremia E78.00 Alcohol dependence F10.20
[2023-06-16 16:13] VITALS: BP 128/68; PULSE 107; RESP 12; TEMP 36.4; O2SAT 97; BMI 24.1
== END 2023-06-16 16:43 | disposition home or self-care (01) ==
PROVIDERS: PCP Nurse Practitioner Family; Visit Provider Nurse Practitioner Family
DX: F43.23 Adjustment disorder with mixed anxiety and depressed mood (principal); E78.00 Pure hypercholesterolemia, unspecified; F10.20 Alcohol dependence, uncomplicated
CPT/HCPCS: 99213

== ENCOUNTER 2023-06-18 11:23 | Day surgery (SDC) | payer OTHER, SELFPAY ==
[2023-06-18 11:55] VITALS: BP 131/68; PULSE 67; RESP 16; TEMP 36.5; O2SAT 100
[2023-06-18 11:59] VITALS: BMI 24.3
--- NOTE | 2023-06-18 12:45 | P.OP_ITS ---
Operative Note Operative Note Date of Service: 06/18/23 Narrative: PreOperative Diagnosis: Penile condyloma left base Post Operative Diagnosis: Penile condyloma Procedure: Excision penile condylomata greater than 1 cm Surgeon: Dr Zbigniew Olson Anesthesia: Local anesthetic Indications for procedure: Penile condyloma approximately 1.5 cm at left base of penis Procedure: After informed consent was verified the patient was brought to the minor procedure room and placed in a supine position. The patient was prepped and draped in a sterile fashion. Safety pause time-out was performed. Anesthesia using local with epi infiltrated under the penile lesion base. Fifteen blade used for sharp dissection and removal of lesion remaining superfic ial. 4-0 chromic interrupted sutures used for skin reapproximation Patient tolerated procedure well. Minimal bleeding For 6 week follow-up Pathology: Penile lesion Drains: Dressing
[2023-06-18 12:46] VITALS: BP 132/83; PULSE 69; RESP 16; TEMP 36.5; O2SAT 99
== END 2023-06-18 11:24 | disposition home or self-care (01) ==
LOC: HO.SSS 09-03 09:07
PROVIDERS: Visit Provider Urology
PROC: (CPT 54055; principal; 2023-06-18 12:00)
DX: A63.0 Anogenital (venereal) warts (principal); E78.00 Pure hypercholesterolemia, unspecified; F17.210 Nicotine dependence, cigarettes, uncomplicated; F12.90 Cannabis use, unspecified, uncomplicated
CPT/HCPCS: 54060; 88305

== ENCOUNTER → 2023-06-18 11:23 | Outpatient (BNV) | payer OTHER, SELFPAY | PROVIDERS: Visit Provider Urology | DX: A63.0 Anogenital (venereal) warts (principal) | CPT/HCPCS: 54060 ==

== ENCOUNTER 2023-07-16 09:35 | Outpatient (AMB) | payer OTHER, SELFPAY ==
--- NOTE | 2023-07-16 09:40 | A.OFFVIS_ITS ---
Intake Intake Visit Reasons: 4 week (wart removal) Intake Note: Pt presents to the office today for a 4 week wart removal post op follow up Urology Medications: none Blood Thinner: none Senior Climate Advisor Required: No Accompanied by: Self / Same As Patient Allergies No Known Allergies Allergy (Verified 07/16/23 09:51) Medication List - Last Reconciled 07/16/23 by ANGIE Polanco No Known Home Meds HPI HPI Comments History of Present Illness Details Santos is a very pleasant 43-year-old male patient of Dr. Deutsch. He has a past medical history of anxiety, depression and alcohol depend ence. He presents to the office today for follow-up. Of note, patient recently underwent left-sided scrotal wart removal with Dr. Olson on 06/18. He reports to be doing and feeling well. In assessment of the patient today site is well healed with no drainage, open areas, and or redness noted. He otherwise denies any urinary issues. When asked he denies urinary urgency, urinary frequency, incontinence, nocturia, hematuria, dysuria, foul smelling urine, changes to urinary stream, flank pain, fever, and or chills. He is happy with his current voiding parameters. Discussed importance of obtaining HPV immunization. Discussed trimming verses shaving in genital area. He otherwise offers no issues or concerns at this time. REPLACED BY [facility] Medical History Depression Anxiety No known health problems Surgical History History of open reduction and internal fixation (ORIF) procedure Family History Mother Alcoholism Father Alcoholism Social History Housing: House Alcohol intake: current Alcohol intake frequency: 0-2 drinks per day Alcohol type: beer Patient Tobacco Use Status: Current someday Tobacco user Tobacco use type: Cigarette e-Cigarette/Vaping Use: Never Used Substance Use Type: Marijuana service: No Current occupational status: employed Cognitive needs: No Hearing needs: No Vision needs: No Review of Systems Eyes Reports no additional complaints ENT Reports no additional complaints Card Reports no additional complaints Resp Reports no additional complaints GI Reports no additional complaints Reports as per HPI Musc Reports no additional complaints Neuro Reports no additional complaints Psych Reports as per HPI Endo Reports no additional complaints Josh/Lymph Reports no additional complaints Aller/Immun Reports no additional complaints Physical Exam Const General: cooperative, healthy appearing, comfortable, no acute distress, well developed, alert and awake Nutritional Appearance: average body habitus Orientation/consciousness: patient oriented x3 Limitations: no limitations HEENT Head: Yes normal to inspection, Yes normocephalic and Yes atraumatic Ears: hearing grossly normal bilaterally Eyes General: appearance normal, both eyes and all related structures Neck Neck: Yes normal visual inspection and Yes trachea midline Chest Chest palpation & inspection: normal inspection of the chest Resp Effort & Inspection: normal respiratory effort and able to speak in complete sentences Cardio Rate: regular rate GI Inspection: Yes normal to inspection Other: as noted in HPI General: Yes no CVA tenderness Back/Spine/Pelvis Back: no CVA tenderness Skin General skin exam: no rashes or lesions noted Neuro General: patient oriented x3 Extrem General: Yes normal to inspection Psych Appearance: grossly normal and well kempt Mental Status: mental status grossly normal Speech and movement: Normal speech and movement present and Clear speech present Affect: normal affect Attitude: cooperative Thought process: Normal thought process present Thought content: Normal thought content present Insight: Good insight present (Psych) Judgement: Good judgement present (Psych) Assessment & Plan Assessment & Plan (1) Warts, genital: Code(s): A63.0 - Anogenital (venereal) warts (2) Genital lesion, male: Code(s): N50.89 - Other specified disorders of the male genital organs Plan In assessment of the patient today surgical site appears well healed with no open areas, drainage, and or redness noted. Discussed obtaining HPV immunization Discussed importance of trimming verses shaving Patient denies any bothersome urinary issues or concerns at this time. Patient reports be happy with current voiding parameters. Follow-up as needed Patient Instructions: The patient had an opportunity to ask questions regarding the treatment plan. All questions were answered. Physical exam, labs, and imaging were discussed and reviewed in detail. As well as risks, benefits, and discussion of treatment choices. No major barriers to understanding were identified. The patient expressed understanding and agreement with the above treatment plan. The patient was made aware they should contact our office by phone for worsening of their current condition, the appearance of new symptoms, or with any questions or concerns. Compliance is encouraged with any medications and follow up testing that is ordered. It is a privilege to be allowed the opportunity to participate in? your urological care.? Again, if you have any questions or concerns If you have any questions or concerns please do not hesitate to contact me. The office is [phone]. This note is constructed using voice recognition software. While every effort has been made to ensure accuracy natural resource manager errors may have been included. Yours sincerely, ANGIE Polanco Coding Level of Care Code Est Pt Level 3 (67164) Diagnoses Warts, genital A63.0 Genital lesion, male N50.89
== END 2023-07-16 09:55 | disposition home or self-care (01) ==
PROVIDERS: PCP Nurse Practitioner Family; Visit Provider Nurse Practitioner Family
DX: A63.0 Anogenital (venereal) warts (principal); N50.89 Other specified disorders of the male genital organs
CPT/HCPCS: 99213

== ENCOUNTER → 2023-07-16 09:35 | Outpatient (BNVA) | payer OTHER, SELFPAY | PROVIDERS: PCP Nurse Practitioner Family; Visit Provider Nurse Practitioner Family ==

== ENCOUNTER 2023-09-22 14:29 | Outpatient (AMB) | payer OTHER, SELFPAY ==
--- NOTE | 2023-09-22 14:33 | MHC.PC.OV ---
Vital Signs 09/22/23 14:35 Height 6 ft 4 in Weight 198 lb BMI 24.1 BP 120/72 Blood Pressure Location Rt brachial Position Sitting Pulse 90 Pulse Source Pulse Oximeter Pulse Oximetry (%) 98 Oxygen Delivery Method Room Air Intake Visit Reasons: Transfer of care from [facility] Intake Note: Patient here to establish care. Allergies No Known Allergies Allergy (Verified 09/22/23 16:05) Medication List - Last Reconciled 09/22/23 by ANGIE Sierra No Known Home Meds Tobacco use date assessed: 09/22/23 Dental Screening Dental Screen Date: 09/22/23 Did you have a dental visit in the last 12 months?: Yes Did you have a dental problem in the last 6 months where you did not have access to dental care?: No Was dental information given to patient?: Patient has dentist HPI Transfer of care from [facility] HPI Details i'm a raging alcoholic . Pt reports this habit is getting worse. Pt does have a therapist. Pt reports he was [facility], i need to go to a full out rehab, I was getting transferred to a place , but went back to work because [place] paperwork was not filled out for some reason. I will fill out any [place] paperwork for this pt. Zahra () spoke with the pt in the exam room today. Pt was told to follow up at [facility] in [place] for Detox. Pt will make arrangements for this and keep me informed. Pt reported drinking up to 18 beers a day. [facility] Medical History Depression Anxiety No known health problems Surgical History History of open reduction and internal fixation (ORIF) procedure Family History Mother Alcoholism Father Alcoholism Social History Housing: House Alcohol intake: current Alcohol intake frequency: 0-2 drinks per day Alcohol type: beer Patient Tobacco Use Status: Current someday Tobacco user Tobacco use type: Cigarette Cigarette Packs Per Day: 2 e-Cigarette/Vaping Use: Never Used Substance Use Type: Marijuana service: No Current occupational status: employed Cognitive needs: No Hearing needs: No Vision needs: No Questionnaire PHQ-9 Over the last 2 weeks, how often have you been bothered by any of the following problems? 1. Little interest or pleasure in doing things: more than half the days 2. Feeling down, depressed, or hopeless: more than half the days 3. Trouble falling or staying asleep, or sleeping too much: more than half the days 4. Feeling tired or having little energy: more than half the days 5. Poor appetite or overeating: more than half the days 6. Feeling bad about yourself - or that you are a failure or have let yourself or your family down: more than half the days 7. Trouble concentrating on things, such as reading the newspaper or watching television: more than half the days 8. Moving or speaking so slowly that other people could have noticed. Or the opposite - being so fidgety or restless that you have been moving around a lot more than usual: more than half the days 9. Thoughts that you would be better off or of hurting yourself in some way: several days Total score: 17 Depression Screening Interpretation: Positive Depression Screening Done: Yes 02478 - PHQ-9 Billing: Yes Source: Developed by Drs. Jesse Hackett, Dina Colon, Grant Hassan and colleagues, with an educational sabrina from [employer] Thrive Questionnaire Date Thrive assessed: 09/22/23 I am a: Patient What is your living situation today?: I have a steady place to live Within the past 12 months, did the food you bought not last and you didn't have the money to get more?: Sometimes True Within the past 12 months, did you worry whether your food would run out before you got money to buy more?: Never true Do you have trouble paying for medicines?: Yes Do you have trouble getting transportation to medical appointments?: No Do you have trouble paying your heating and electricity bill?: No Do you have trouble taking care of your child, family member or friend?: No Do you have trouble with day-to-day activities such as bathing, preparing meals, shopping, managing finances, etc.?: No Are you currently unemployed and looking for a job?: No Are you interested in more education?: No AUDIT C Alcohol Use Questionnaire (AUDIT-C) 1. How often do you have a drink containing alcohol?: Never 3. How often do you have six or more drinks on one occasion?: Never Total Score: 0 Score Reviewed/Action Taken: No JUVENTINO-7 AMB Questionnaire JUVENTINO-7 Date JUVENTINO - 7 assessed: 09/22/23 Feeling nervous, anxious, or on edge: 2 = More than half the days Not being able to stop or control worryin = More than half the days Worrying too much about different things: 2 = More than half the days Trouble relaxin = More than half the days Being so restless that it is hard to sit still: 2 = More than half the days Becoming easily annoyed or irritable: 2 = More than half the days Feeling afraid as if something awful might happen: 2 = More than half the days Total JUVENTINO-7 score (0-4 normal; 5-9 mild; 10-14 moderate; 15-21 severe): 14 Source: Developed by Drs. Jesse Hackett, Dina Colon, Grant Hassan and colleagues, with an educational sabrina from [employer] JUVENTINO-7 Assessment Billing JUVENTINO-7 Assessment Tool: JUVENTINO-7 Assessment 25757 Physical exam (Primary Care) Vital Signs: Last Vital Signs Pulse 90 09/22/23 14:35 BP 120/72 09/22/23 14:35 Pulse Ox 98 09/22/23 14:35 Oxygen Delivery Method Room Air 09/22/23 14:35 BMI result Body Mass Index 24.1 Tobacco/Smoking Status: Tobacco use Status Tobacco use date assessed 09/22/23 09/22/23 14:38 Patient Tobacco Use Status Current someday Tobacco 09/22/23 14:38 Tobacco use type Cigarette 09/22/23 14:38 e-Cigarette/Vaping Use Never Used 09/22/23 14:38 Depression Screening Interpretation: Positive Thrive Assessment: Date of Thrive Assessment Date Thrive assessed 11/24/22 09/22/23 14:38 Resp Effort & Inspection: normal respiratory effort Auscultation: clear to auscultation bilaterally Cardio Rate: regular rate Rhythm: regular rhythm Heart sounds: S1 normal heart sound present and S2 normal heart sound present Psych Mental Status: mental status grossly normal Speech and movement: Normal speech and movement present Affect: normal affect Thought process: Normal thought process present Thought content: Normal thought content present Insight: Good insight present (Psych) Judgement: Good judgement present (Psych) Assessment and Plan Assessment & Plan (1) Alcohol dependence: Code(s): F10.20 - Alcohol dependence, uncomplicated Plan: pt is to follow up at [facility]. He will keep me informed on his plans, and i will gladly fill out any paperwork he needs. Orders: Orders Comprehensive [facility]. Panel Fast Today F10.20 - Alcohol dependence, uncomplicated Complete Blood Count Auto Diff Today F10.20 - Alcohol dependence, uncomplicated TSH reflex Free T4 Today F10.20 - Alcohol dependence, uncomplicated UA CC w/rflx Micro + Cult Today F10.20 - Alcohol dependence, uncomplicated Lipid Panel Today F10.20 - Alcohol dependence, uncomplicated Coding Level of Care Code New Pt Level 3 (16448) Diagnoses Alcohol dependence F10.20 Additional Codes JUVENTINO-7 Assessment Billing - JUVENTINO-7 Assessment Tool: JUVENTINO-7 Assessment 82235 ([id number])
[2023-09-22 14:35] VITALS: BP 120/72; PULSE 90; O2SAT 98; BMI 24.1
== END 2023-09-22 16:02 | disposition home or self-care (01) ==
PROVIDERS: PCP Nurse Practitioner Family; Visit Provider Nurse Practitioner Family
DX: F10.20 Alcohol dependence, uncomplicated (principal)
CPT/HCPCS: 96127; 99213

== ENCOUNTER 2024-01-03 14:05 | Outpatient (AMB) | payer OTHER, SELFPAY ==
--- NOTE | 2024-01-03 14:16 | A.OFFPC_ITS ---
Vital Signs 01/03/24 14:18 Height 6 ft 4 in Weight 200 lb 4 oz BMI 24.4 BP 120/66 Blood Pressure Location Rt brachial Position Sitting Pulse 92 Pulse Source Pulse Oximeter Pulse Oximetry (%) 93 Oxygen Delivery Method Room Air Intake Visit Reasons: 3 month fu Intake Note: Patient here to f/u on alcohol abuse. pt states he went to treatment in September for 28 days and is now sober. Allergies No Known Allergies Allergy (Verified 01/03/24 14:19) Tobacco use date assessed: 09/22/23 Dental Screening Dental Screen Date: 09/22/23 HPI 3 month fu HPI Details alcohol abuse: 28 day program in [place]. Pt was sober for a couple of months, one saturdays night a couple of weeks ago he reported having six beers . He reports not drinking since. Pt reports he is a lot more focused now, especially not drinking. Reinforced importance of staying sober. Pt reports i'm clean . Pt is not interested in AA meetings or any other rehab c urrently. Pt does seem in good spirits today. Encouraged pt to get labs drawn (ordered previously). [facility] Medical History Depression Anxiety No known health problems Surgical History History of open reduction and internal fixation (ORIF) procedure Family History Mother Alcoholism Father Alcoholism Social History Housing: House Alcohol intake: current Alcohol intake frequency: 0-2 drinks per day Alcohol type: beer Patient Tobacco Use Status: Current someday Tobacco user Tobacco use type: Cigarette Cigarette Packs Per Day: 2 e-Cigarette/Vaping Use: Never Used Substance Use Type: Marijuana service: No Current occupational status: employed Cognitive needs: No Hearing needs: No Vision needs: No Questionnaire Thrive Questionnaire Date Thrive assessed: 09/22/23 JUVENTINO-7 AMB Questionnaire JUVENTINO-7 Date JUVENTINO - 7 assessed: 09/22/23 Source: Developed by Drs. Jesse Hacktet, Dina B.W. Grant Colon and colleagues, with an educational sabrina from [employer]. Physical exam (Primary Care) Vital Signs: Last Vital Signs Pulse 92 01/03/24 14:18 BP 120/66 01/03/24 14:18 Pulse Ox 93 01/03/24 14:18 Oxygen Delivery Method Room Air 01/03/24 14:18 BMI result Body Mass Index 24.4 Tobacco/Smoking Status: Tobacco use Status Tobacco use date assessed 09/22/23 01/03/24 14:19 Patient Tobacco Use Status Current someday Tobacco 01/03/24 14:19 Tobacco use type Cigarette 01/03/24 14:19 e-Cigarette/Vaping Use Never Used 01/03/24 14:19 Thrive Assessment: Date of Thrive Assessment Date Thrive assessed 09/22/23 01/03/24 14:19 Const General: cooperative, healthy appearing, comfortable and no acute distress Resp Auscultation: clear to auscultation bilaterally Cardio Rate: regular rate Rhythm: regular rhythm Heart sounds: S1 normal heart sound present, S2 normal heart sound present and no murmurs Assessment and Plan Assessment & Plan (1) Alcohol dependence: Code(s): F10.20 - Alcohol dependence, uncomplicated Plan: encoruaged pt to stary sober, and to call me with further questions or concerns Coding Level of Care Code Est Pt Level 3 (44132) Diagnoses Alcohol dependence F10.20
[2024-01-03 14:18] VITALS: BP 120/66; PULSE 92; O2SAT 93; BMI 24.4
== END 2024-01-03 16:03 | disposition home or self-care (01) ==
PROVIDERS: PCP Nurse Practitioner Family; Visit Provider Nurse Practitioner Family
DX: F10.20 Alcohol dependence, uncomplicated (principal)
CPT/HCPCS: 99213

== ENCOUNTER 2024-06-06 07:35 | Outpatient (REF) | payer OTHER, SELFPAY ==
[2024-06-06 10:14] LABS: MANUAL DIFF FLAG NO
[2024-06-06 10:27] LABS: Basophils Percent Auto 0.6 % (0-2); Eosinophils Absolute Auto 0.2 X10*3/uL (0.0-0.4); Eosinophils Percent Auto 2.7 % (0-4); Hematocrit 45.9 % (42.0-52.0); Hemoglobin 15.7 g/dl (14.0-18.0); Imm Gran Abs Auto 0.03 X10*3/uL (0.00-0.03); Imm Gran Pct Auto 0.5 % (0.0-0.4); Lymphocytes Absolute Auto 1.7 X10*3/uL (1.2-4.9); Lymphocytes Percent Auto 26.9 % (20-40); Mean Corpuscular HGB Conc 34.2 g/dl (31.0-36.0); Mean Corpuscular Hemoglobin 32.9 pg (27.0-33.0); Mean Corpuscular Volume 96.2 fL (80.0-98.0); Mean Platelet Volume 10.1 fL (9.4-12.4); Monocytes Absolute Auto 0.7 X10*3/uL (0.1-1.2); Monocytes Percent Auto 10.8 % (2-11); Neutrophils Absolute Auto 3.6 x10*3/uL (2.0-8.3); Neutrophils Percent Auto 58.5 % (45-73); Platelet Count 248 X10*3/uL (160-400); Red Blood Count 4.77 X10*6/uL (4.60-5.80); Red Cell Distribution Width 12.8 % (11.0-16.0); White Blood Count 6.2 X10*3/uL (4.8-10.8)
[2024-06-06 11:17] LABS: Alanine Aminotransferase 29 U/L (0-40); Albumin Level 4.4 g/dL (3.5-5.0); Alkaline Phosphatase 62 U/L (39-117); Anion Gap 12 (12-20); Aspartate Amino Transferase 32 U/L (5-37); Bilirubin Total 0.3 mg/dL (0.0-1.0); Blood Urea Nitrogen 15 mg/dL (9-16); Calcium 9.4 mg/dL (8.4-10.2); Carbon Dioxide 26 mmol/L (22-29); Chloride 106 mmol/L (96-108); Cholesterol 221 mg/dL (<200); Estimated Glomerular Filt Rate > 60; Glucose Fasting 79 mg/dL (60-99); HDL Cholesterol 66 mg/dL (>40); LDL Cholesterol Calculated 118 mg/dL (<100); Sodium 140 mmol/L (135-145); TSH reflex Free T4 1.56 uIU/mL (0.32-4.0); Total Protein 7.4 g/dL (6.5-8.0); Triglycerides 189 mg/dL (<150)
== END 2024-06-06 07:36 | disposition home or self-care (01) ==
LOC: HO.HMGCLDS 07:35
PROVIDERS: PCP Nurse Practitioner Family; Visit Provider Nurse Practitioner Family
DX: F10.20 Alcohol dependence, uncomplicated (principal)
CPT/HCPCS: 36415; 80053; 80061; 84443; 85025

== ENCOUNTER 2024-06-26 14:52 | Outpatient (AMB) | payer OTHER, SELFPAY ==
[2024-06-26 14:54] VITALS: BP 122/74; PULSE 72; O2SAT 98; BMI 24.6
--- NOTE | 2024-06-26 14:54 | MHC.PC.OV ---
Vital Signs 06/26/24 14:54 Height 6 ft 4 in Weight 202 lb BMI 24.6 BP 122/74 Blood Pressure Location Lt brachial Position Sitting Pulse 72 Pulse Source Pulse Oximeter Pulse Oximetry (%) 98 Intake Visit Reasons: ANNUAL PE Intake Note: pt is here for annual exam Transport Manager Required: No Accompanied by: Self / Same As Patient Allergies No Known Allergies Allergy (Verified 06/26/24 17:26) Medication List - Last Reconciled 06/26/24 by ANGIE Sierra No Known Home Meds Tobacco use date assessed: 09/22/23 Dental Screening Dental Screen Date: 09/22/23 HPI ANNUAL PE HPI Details Pt is here for a PE. Labs were already performed. Pt's lipids were elevated on last labs. Encouraged pt to work on diet. Will repeat labs. Pt is interested in smoking cessation. He has tried chantix in the past which worked well. He is aware of potential side effects including SI and vivid dreams. Will send starter pack. [facility] Medical History Depression Anxiety No known health problems Surgical History History of open reduction and internal fixation (ORIF) procedure Family History Mother Alcoholism Father Alcoholism Social History Housing: House Alcohol intake: current Alcohol intake frequency: 0-2 drinks per day Alcohol type: beer Patient Tobacco Use Status: Current someday Tobacco user Tobacco use type: Cigarette Cigarette Packs Per Day: 2 e-Cigarette/Vaping Use: Never Used Substance Use Type: Marijuana service: No Current occupational status: employed Cognitive needs: No Hearing needs: No Vision needs: No Questionnaire PHQ-9 Over the last 2 weeks, how often have you been bothered by any of the following problems? 1. Little interest or pleasure in doing things: several days 2. Feeling down, depressed, or hopeless: several days 3. Trouble falling or staying asleep, or sleeping too much: several days 4. Feeling tired or having little energy: several days 5. Poor appetite or overeating: several days 6. Feeling bad about yourself - or that you are a failure or have let yourself or your family down: several days 7. Trouble concentrating on things, such as reading the newspaper or watching television: several days 8. Moving or speaking so slowly that other people could have noticed. Or the opposite - being so fidgety or restless that you have been moving around a lot more than usual: several days 9. Thoughts that you would be better off or of hurting yourself in some way: not at all Total score: 8 Depression Screening Interpretation: Negative Depression Screening Done: Yes 10234 - PHQ-9 Billing: Yes Source: Developed by Drs. Jesse Hackett, Dina Colon, Grant Hassan and colleagues, with an educational sabrina from [employer] Thrive Questionnaire Date Thrive assessed: 06/26/24 I am a: Patient What is your living situation today?: I have a steady place to live Within the past 12 months, did the food you bought not last and you didn't have the money to get more?: Never true Within the past 12 months, did you worry whether your food would run out before you got money to buy more?: Never true Do you have trouble paying for medicines?: I choose not to answer this question Do you have trouble getting transportation to medical appointments?: No Do you have trouble paying your heating and electricity bill?: No Do you have trouble taking care of your child, family member or friend?: No Do you have trouble with day-to-day activities such as bathing, preparing meals, shopping, managing finances, etc.?: No Are you interested in more education?: No Please select the resources that you would like help with: None Currently or been in a relationship where the following occur: I choose not to answer THRIVE Score: 0 AUDIT C Alcohol Use Questionnaire (AUDIT-C) 1. How often do you have a drink containing alcohol?: 4 or more times a week 2. How many drinks containing alcohol do you have on a typical day when you are drinking?: 5 or 6 3. How often do you have six or more drinks on one occasion?: Daily or almost daily Total Score: 10 Score Reviewed/Action Taken: Yes JUVENTINO-7 AMB Questionnaire JUVENTINO-7 Date JUVENTINO - 7 assessed: 06/26/24 Feeling nervous, anxious, or on edge: 1 = Several days Not being able to stop or control worryin = Several days Worrying too much about different things: 1 = Several days Trouble relaxin = Several days Being so restless that it is hard to sit still: 1 = Several days Becoming easily annoyed or irritable: 1 = Several days Feeling afraid as if something awful might happen: 1 = Several days Total JUVENTINO-7 score (0-4 normal; 5-9 mild; 10-14 moderate; 15-21 severe): 7 Source: Developed by Drs. Jesse Hackett, Dina Colon, Grant Hassan and colleagues, with an educational sabrina from [employer] JUVENTINO-7 Assessment Billing JUVENTINO-7 Assessment Tool: JUVENTINO-7 Assessment 91933 Review of Systems Const Denies chills and Denies fever(s) Eyes Denies blurry vision ENT Denies vertigo, Denies dizziness and Denies sore throat Card Denies chest pain at rest, Denies chest pain with activity, Denies diaphoresis, Denies dyspnea and Denies dyspnea on exertion Resp Denies cough, Denies dyspnea, Denies dyspnea on exertion and Denies wheezing GI Denies abdominal pain, Denies melena, Denies hematochezia, Denies constipation, Denies diarrhea and Denies loose stools Denies hematuria Musc Denies numbness and Denies tingling Skin/Breast Denies lesions Neuro Denies vertigo, Denies dizziness, Denies numbness and Denies tingling Psych Denies anxiety, Denies depression, Denies homicidal ideation, Denies suicidal ideation and Denies other (substance abuse) Aller/Immun Denies wheezing Physical exam (Primary Care) Vital Signs: Last Vital Signs Pulse 72 06/26/24 14:54 BP 122/74 06/26/24 14:54 Pulse Ox 98 06/26/24 14:54 BMI result Body Mass Index 24.6 Tobacco/Smoking Status: Tobacco use Status Tobacco use date assessed 09/22/23 06/26/24 14:54 Patient Tobacco Use Status Current someday Tobacco 06/26/24 14:54 Tobacco use type Cigarette 06/26/24 14:54 e-Cigarette/Vaping Use Never Used 06/26/24 14:54 PHQ-9: PHQ-9 Score PHQ-9: Total score 8 06/26/24 15:17 Depression Screening Interpretation: Negative Thrive Assessment: Date of Thrive Assessment Date Thrive assessed 06/26/24 06/26/24 14:55 Currently or been in a relationship where the following occur: I choose not to answer Const General: cooperative Nutritional Appearance: well nourished Orientation/consciousness: patient oriented x3 HENMT Head: Yes normal to inspection, Yes normocephalic and Yes atraumatic Ears: TM's normal bilaterally Eyes General: appearance normal, both eyes and all related structures Alignment and Position: alignment normal and position normal Neck Neck: Yes normal visual inspection, Yes no lymphadenopathy and Yes supple Resp Effort & Inspection: normal respiratory effort Auscultation: clear to auscultation bilaterally Cardio Rate: regular rate Rhythm: regular rhythm Heart sounds: S1 normal heart sound present, S2 normal heart sound present and no murmurs GI Palpation (GI): Soft to palpation and nontender Auscultation: normal bowel sounds Male General Exam: Yes normal external exam Penis: normal penis Scrotum: scrotum normal, testes descended bilaterally and no inguinal hernias Testes: no testicular mass Skin Other: left pubic region with small warts Rashes: no rashes Neuro General: patient oriented x3, moves all extremities, no focal motor deficits and deep tendon reflexes 2+ bilaterally Romberg Test: Negative Psych Appearance: grossly normal Mental Status: mental status grossly normal Speech and movement: Normal speech and movement present Affect: normal affect Attitude: cooperative Thought process: Normal thought process present Thought content: Normal thought content present Insight: Good insight present (Psych) Judgement: Good judgement present (Psych) Coding Level of Care Code Est Pt Prev Care 40-64y(43028) Diagnoses Encounter for routine adult physical exam with abnormal findings Z00. Dyslipidemia E78.5 Cigarette smoker motivated to quit F17.210 Warts, genital A63.0 Additional Codes JUVENTINO-7 Assessment Billing - JUVENTINO-7 Assessment Tool: JUVENTINO-7 Assessment 12640 ([id number]) Assessment & Plan Assessment & Plan (1) Encounter for routine adult physical exam with abnormal findings: Code(s): Z00.01 - Encounter for general adult medical examination with abnormal findings Category: Medical Plan: Labs already performed (2) Dyslipidemia: Code(s): E78.5 - Hyperlipidemia, unspecified Category: Medical Plan: will cont to monitor, educated importance of diet (3) Cigarette smoker motivated to quit: Code(s): F17.210 - Nicotine dependence, cigarettes, uncomplicated Category: Social Hx Plan: Sending chantix (4) Warts, genital: Code(s): A63.0 - Anogenital (venereal) warts Category: Medical Plan: referring back to urology Plan The patient agreed to the use of a medical receptionist for this encounter. Scribed for Brandan Tidwell CRAYON SAWYER- by Lizzie Andre medical receptionist, on 06/26/2024 at 15:15 EST. Orders: Orders Complete Blood Count Auto Diff Today E78.5 - Hyperlipidemia, unspecified Comprehensive [place]. Panel Fast Today E78.5 - Hyperlipidemia, unspecified Lipid Panel Today E78.5 - Hyperlipidemia, unspecified Referrals Urology Referral A63.0 - Anogenital (venereal) warts Medications: New varenicline (Chantix Starting Month Box) PO PER PKG DIR 53 ea 0RF
== END 2024-06-26 17:02 | disposition home or self-care (01) ==
PROVIDERS: PCP Nurse Practitioner Family; Visit Provider Nurse Practitioner Family
DX: Z00.01 Encounter for general adult medical examination with abnormal findings (principal); E78.5 Hyperlipidemia, unspecified; F17.210 Nicotine dependence, cigarettes, uncomplicated; A63.0 Anogenital (venereal) warts

== ENCOUNTER → 2024-06-26 14:52 | Outpatient (BNVA) | payer OTHER, SELFPAY | PROVIDERS: PCP Nurse Practitioner Family; Visit Provider Nurse Practitioner Family | DX: Z00.01 Encounter for general adult medical examination with abnormal findings (principal); E78.5 Hyperlipidemia, unspecified; A63.0 Anogenital (venereal) warts; F17.210 Nicotine dependence, cigarettes, uncomplicated | CPT/HCPCS: 96127 ==

== ENCOUNTER 2024-07-06 12:46 | Outpatient (AMB) | payer OTHER, SELFPAY ==
--- NOTE | 2024-07-06 12:54 | A.OFFPC_ITS ---
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 Pt reports in December 2021 he was at work on a ladder lifting something heavy from the ceiling. He fell off the ladder (approx 15 feet) and landed headfirst onto concrete. Pt reportedly lost consciousness and woke up in an ambulance. Pt was seen in the ER and had a left clavicle fracture, hematomas, and abrasions. Pt had surgery on his clavicle approximately 1 month later and the bone was shaved. Pt had no plates or screws placed because his surgeon stated his clavicle was mostly healed. Pt went to PT after the surgery. Today, pt is reporting left-sided neck and clavicular region pain radiating to his anterior left shoulder. He reports that it is difficult to sleep due to the pain and he is unable to use a pillow. Pt is left-handed and finds it difficult to perform tasks with his LUE, further describing weakness. Pt reports feeling heat to the areas as well. Will order XRs of cervical spine, left clavicle, and left shoulder. Denies fever, chills, and dizziness. [facility] Medical History Depression Anxiety No known health problems Surgical History History of open reduction and internal fixation (ORIF) procedure Family History Mother Alcoholism Father Alcoholism Social History Housing: House Alcohol intake: current Alcohol intake frequency: 0-2 drinks per day Alcohol type: beer Patient Tobacco Use Status: Current someday Tobacco user Tobacco use type: Cigarette Cigarette Packs Per Day: 2 e-Cigarette/Vaping Use: Never Used Substance Use Type: Marijuana service: No Current occupational status: employed Cognitive needs: No Hearing needs: No Vision needs: No Questionnaire Thrive Questionnaire Date Thrive assessed: 06/26/24 I am a: Patient What is your living situation today?: I have a steady place to live Within the past 12 months, did the food you bought not last and you didn't have the money to get more?: Never true Within the past 12 months, did you worry whether your food would run out before you got money to buy more?: Never true Do you have trouble paying for medicines?: I choose not to answer this question Do you have trouble getting transportation to medical appointments?: No Do you have trouble paying your heating and electricity bill?: No Do you have trouble taking care of your child, family member or friend?: No Do you have trouble with day-to-day activities such as bathing, preparing meals, shopping, managing finances, etc.?: No Are you currently unemployed and looking for a job?: No Are you interested in more education?: No Please select the resources that you would like help with: None Currently or been in a relationship where the following occur: I choose not to answer THRIVE Score: 0 JUVENTINO-7 AMB Questionnaire JUVENTINO-7 Date JUVENTINO - 7 assessed: 06/26/24 Source: Developed by Drs. Jesse Hackett, Dina Colon, Grant Hassan and colleagues, with an educational sabrina from [employer]. Review of Systems Const Reports as per HPI Physical exam (Primary Care) Vital Signs: Last Vital Signs Pulse 82 07/06/24 12:55 BP 122/76 07/06/24 12:55 Pulse Ox 97 07/06/24 12:55 Oxygen Delivery Method Room Air 07/06/24 12:55 BMI result Body Mass Index 24.6 Tobacco/Smoking Status: Tobacco use Status Tobacco use date assessed 09/22/23 07/06/24 12:55 Patient Tobacco Use Status Current someday Tobacco 07/06/24 12:55 Tobacco use type Cigarette 07/06/24 12:55 e-Cigarette/Vaping Use Never Used 07/06/24 12:55 Thrive Assessment: Date of Thrive Assessment Date Thrive assessed 06/26/24 07/06/24 12:55 Currently or been in a relationship where the following occur: I choose not to answer Const General: cooperative Orientation/consciousness: patient oriented x3 Resp Effort & Inspection: normal respiratory effort Auscultation: clear to auscultation bilaterally Cardio Rate: regular rate Rhythm: regular rhythm Heart sounds: S1 normal heart sound present and S2 normal heart sound present Back/Spine/Pelvis Other: left lateral neck muscle tissue tight, tenderness with turning head side to side and neck flexion, no pain with chin tucks or chin raises, + spurlings to left radiating to left clavicular region and left anterior shoulder. no tenderness with palpation of left neck, left clavicular region, and left anterior shoulder. Neuro General: patient oriented x3 Extrem Other: weakness noted with anterior and lateral LUE raises against resistance, tenderness to left clavicular region, just inferior to clavicular region, and anterior left shoulder, left shoulder: - tapia, - neers Psych Appearance: grossly normal Mental Status: mental status grossly normal Speech and movement: Normal speech and movement present Affect: normal affect Attitude: cooperative Thought process: Normal thought process present Thought content: Normal thought content present Insight: Good insight present (Psych) Judgement: Good judgement present (Psych) Coding Level of Care Code Est Pt Level 3 (71585) Diagnoses Left shoulder pain M25.512 Clavicular fracture S42.009A Fall W19.XXXA Cervical pain (neck) M54.2 Assessment & Plan Assessment & Plan (1) Left shoulder pain: Code(s): M25.512 - Pain in left shoulder Category: Medical Plan: XRs ordered (2) Clavicular fracture: Code(s): S42.009A - Fracture of unspecified part of unspecified clavicle, initial encounter for closed fracture Category: Medical Plan: XRs ordered (3) Fall: Code(s): W19.XXXA - Unspecified fall, initial encounter Category: Medical (4) Cervical pain (neck): Code(s): M54.2 - Cervicalgia Category: Medical Plan: XRs ordered Plan The patient agreed to the use of a medical claims representative for this encounter. Scribed for Brandan Tidwell [employer]ICE [employer]IT [employer]- by Lizzie Andre medical claims representative, on 07/06/2024 at 13:25 EST. Orders: Orders XR clavicle LT Today M25.512 - Pain in left shoulder, M54.2 - Cervicalgia, S42.009A - Fracture of unspecified part of unspecified clavicle, initial encounter for closed fracture, W19.XXXA - Unspecified fall, initial encounter XR cervical spine 2V Today M25.512 - Pain in left shoulder, M54.2 - Cervicalgia, S42.009A - Fracture of unspecified part of unspecified clavicle, initial encounter for closed fracture, W19.XXXA - Unspecified fall, initial encounter XR shoulder LT min 2V Today M25.512 - Pain in left shoulder, M54.2 - Cervicalgia, S42.009A - Fracture of unspecified part of unspecified clavicle, initial encounter for closed fracture, W19.XXXA - Unspecified fall, initial encounter
[2024-07-06 12:55] VITALS: BP 122/76; PULSE 82; O2SAT 97; BMI 24.6
== END 2024-07-06 13:49 | disposition home or self-care (01) ==
PROVIDERS: PCP Nurse Practitioner Family; Visit Provider Nurse Practitioner Family
DX: M25.512 Pain in left shoulder (principal); S42.009A Fracture of unspecified part of unspecified clavicle, initial encounter for closed fracture; W19.XXXA Unspecified fall, initial encounter; M54.2 Cervicalgia

== ENCOUNTER → 2024-07-06 12:46 | Outpatient (BNVA) | payer OTHER, SELFPAY | PROVIDERS: PCP Nurse Practitioner Family; Visit Provider Nurse Practitioner Family ==

== ENCOUNTER 2024-07-06 13:38 | Outpatient (REF) | payer OTHER, SELFPAY ==
--- NOTE | ~2024-07-06 | XR_ITS ---
EXAMINATION: XR CLAVICLE LEFT 2 VIEWS CLINICAL INFORMATION: Unspecified fall, initial encounter W19.XXXA. COMPARISON: None available TECHNIQUE: 2 views of the left clavicle. FINDINGS: There is no fracture or malalignment. The acromioclavicular joint is mildly widened measuring 0.9 cm. Appropriate alignment otherwise. The sternoclavicular alignment is grossly maintained. The visualized ribs are intact. The visualized lung is clear. XR/XR clavicle LT IMPRESSION: No fracture. Mild widening of the acromioclavicular joint which could be physiologic. Consider contralateral imaging for comparison. Electronically signed by: Markel Singletary MD 08/30/2024 08:17 AM FARHAD
--- NOTE | ~2024-07-06 | XR_ITS ---
EXAMINATION: XR SHOULDER LEFT 3 VIEWS CLINICAL INFORMATION: Unspecified fall, initial encounter W19.XXXA. COMPARISON: XR Left clavicle 07/06/2024 TECHNIQUE: AP neutral, Grashey, and scapular Y views of the left shoulder. FINDINGS: No acute fracture. No joint space narrowing and marginal osteophytes. Cortical irregularity distal clavicle, which likely represents a remote, healed fracture. Mild widening of the acromioclavicular joint is redemonstrated measuring up to 1.0 cm. Findings could represent normal variation versus sequela of prior trauma. Correlate for focal tenderness. No abnormal soft tissue calcification. XR/XR shoulder LT min 2V IMPRESSION: 1. No acute fracture or dislocation. 2. Mild widening of the acromioclavicular joint is redemonstrated. Findings could represent normal variation versus sequela of prior trauma. Correlate for focal tenderness. Electronically signed by: Mohsen Aguilar MD 08/30/2024 01:03 PM [facility] ROSS
--- NOTE | ~2024-07-06 | XR_ITS ---
EXAMINATION: XR CERVICAL SPINE 3 VIEWS CLINICAL INFORMATION: Unspecified fall, initial encounter W19.XXXA. COMPARISON: None available TECHNIQUE: 3 views of the cervical spine were obtained. FINDINGS: The cervical lordosis is maintained. Minimal grade 1 retrolisthesis of C4 on C5 measuring 0.4 cm in AP dimension. Minimal loss of intervertebral disc height with tiny endplate osteophytes at C4-C5. No concerning lytic or blastic osseous lesion. No loss of vertebral body height. Normal atlantoaxial alignment. Unremarkable prevertebral soft tissues. XR/XR cervical spine 3V IMPRESSION: 1. Minimal grade 1 retrolisthesis of C4 on C5 with mild degenerative disc disease. 2. No acute fracture. Electronically signed by: Mohsen Aguilar MD 08/30/2024 01:02 PM [facility] ROSS
== END 2024-07-06 13:39 | disposition home or self-care (01) ==
LOC: HO.HMGCX 13:38
PROVIDERS: PCP Nurse Practitioner Family; Visit Provider Nurse Practitioner Family
DX: S42.002A Fracture of unspecified part of left clavicle, initial encounter for closed fracture (principal); M25.512 Pain in left shoulder; M54.2 Cervicalgia; W19.XXXA Unspecified fall, initial encounter
CPT/HCPCS: 72040; 73000; 73030; 99212

== ENCOUNTER 2024-08-23 15:44 | Outpatient (AMB) | payer OTHER, SELFPAY ==
--- NOTE | 2024-08-23 16:09 | A.OFFVIS_ITS ---
Intake Visit Reasons: Genital warts Intake Note: Pt presents to the office today for a follow up wart. 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 Accompanied by: Self / Same As Patient Allergies No Known Allergies Allergy (Verified 08/23/24 16:20) [facility] Medical History Depression Anxiety No known health problems Surgical History History of open reduction and internal fixation (ORIF) procedure Family History Mother Alcoholism Father Alcoholism Social History Housing: House Alcohol intake: current Alcohol intake frequency: 0-2 drinks per day Alcohol type: beer Patient Tobacco Use Status: Current someday Tobacco user Tobacco use type: Cigarette Cigarette Packs Per Day: 2 e-Cigarette/Vaping Use: Never Used Substance Use Type: Marijuana service: No Current occupational status: employed Cognitive needs: No Hearing needs: No Vision needs: No Coding
--- NOTE | 2024-08-23 16:20 | MHC.OFFVIS ---
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 Deutsch. He has a past medical history of anxiety, depression and alcohol dependence. He presents to the office today for follow-up of his genital warts. Of note, patient underwent left-sided penile condyloma wart removal with Dr. Olson on 06/18/23. In discussion with the patient today he reports that he had been doing well however has recently noted condylomas to have returned. In assessment of the patient today there are a cluster of penile lesions at the left base measuring a proximally 2-5 mm in size. We discussed further treatment options to include in office cryotherapy verses excision of penile condyloma as as previously performed. Risks and benefits of these interventions were discussed. In office cryotherapy was performed 30-40 second freeze thaw cycle was performed and repeated x2. Patient tolerated procedure well. CPT code 26162. He otherwise denies any bothersome urinary issues. When asked he denies urinary urgency, urinary frequency, incontinence, nocturia, hematuria, dysuria, foul smelling urine, changes to urinary stream, flank pain, fever, and or chills. He is happy with his current voiding parameters. Discussed importance of obtaining HPV immunization. Discussed trimming verses shaving in genital area. He otherwise offers no issues or concerns at this time. [facility] Medical History Depression Anxiety No known health problems Surgical History History of open reduction and internal fixation (ORIF) procedure Family History Mother Alcoholism Father Alcoholism Social History Housing: House Alcohol intake: current Alcohol intake frequency: 0-2 drinks per day Alcohol type: beer Patient Tobacco Use Status: Current someday Tobacco user Tobacco use type: Cigarette Cigarette Packs Per Day: 2 e-Cigarette/Vaping Use: Never Used Substance Use Type: Marijuana service: No Current occupational status: employed Cognitive needs: No Hearing needs: No Vision needs: No Review of Systems Eyes Reports no additional complaints ENT Reports no additional complaints Card Reports no additional complaints Resp Reports no additional complaints GI Reports no additional complaints Reports as per HPI Musc Reports no additional complaints Neuro Reports no additional complaints Psych Reports as per HPI Endo Reports no additional complaints Josh/Lymph Reports no additional complaints Aller/Immun Reports no additional complaints Physical Exam Const General: cooperative, healthy appearing, comfortable, no acute distress, well developed, alert and awake Nutritional Appearance: average body habitus Orientation/consciousness: patient oriented x3 Limitations: no limitations HEENT Head: Yes normal to inspection, Yes normocephalic and Yes atraumatic Ears: hearing grossly normal bilaterally Eyes General: appearance normal, both eyes and all related structures Neck Neck: Yes normal visual inspection and Yes trachea midline Chest Chest palpation & inspection: normal inspection of the chest Resp Effort & Inspection: normal respiratory effort and able to speak in complete sentences Cardio Rate: regular rate GI Inspection: Yes normal to inspection Other: as noted in HPI General: Yes no CVA tenderness Back/Spine/Pelvis Back: no CVA tenderness Skin General skin exam: no rashes or lesions noted Neuro General: patient oriented x3 Extrem General: Yes normal to inspection Psych Appearance: grossly normal and well kempt Mental Status: mental status grossly normal Speech and movement: Normal speech and movement present and Clear speech present Affect: normal affect Attitude: cooperative Thought process: Normal thought process present Thought content: Normal thought content present Insight: Good insight present (Psych) Judgement: Good judgement present (Psych) Results AMB Urinalysis, Automated UA Leukoctes 0 Uriel/uL Last Edit by [employer] on 08/23/24 16:35 UA Nitrite Last Edit by [employer] on 08/23/24 16:35 UA Urobilinogen 0.2 mg/dL Last Edit by [employer] on 08/23/24 16:35 UA Protein 0 mg/dL Last Edit by [employer] on 08/23/24 16:35 UA pH 6.0 Last Edit by [employer] on 08/23/24 16:35 UA Blood 0 Yg/uL Last Edit by Srikanth Peraza on 08/23/24 16:35 UA Specific [place] 1.015 Last Edit by Srikanth Peraza on 08/23/24 16:35 UA Ketone Negative Last Edit by Srikanth Peraza on 08/23/24 16:35 UA Bilirubin 0 mg/dL Last Edit by Srikanth Peraza on 08/23/24 16:35 UA Glucose 0 mg/dL Last Edit by Srikanth Peraza on 08/23/24 16:35 Results Reviewed Results Reviewed: Laboratory Last Values Urine pH (Auto) 6.0 08/23/24 16:33 Specific [place] (Auto) 1.015 08/23/24 16:33 Urine Protein (Auto) 0 mg/dL 08/23/24 16:33 Glucose (UA)(Auto) 0 mg/dL 08/23/24 16:33 Urine Ketones (Auto) Negative 08/23/24 16:33 Urine Blood (Auto) 0 Yg/uL 08/23/24 16:33 Urine Bilirubin (Auto) 0 mg/dL 08/23/24 16:33 Urine Urobilinogen (Auto) 0.2 mg/dL 08/23/24 16:33 Leukocyte Esterase (Auto) 0 Uriel/uL 08/23/24 16:33 Assessment & Plan Assessment & Plan (1) Warts, genital: Code(s): A63.0 - Anogenital (venereal) warts Category: Medical (2) Genital lesion, male: Code(s): N50.89 - Other specified disorders of the male genital organs Category: Medical Plan In office cryotherapy performed; as noted above. Discussed obtaining HPV immunization. We discussed further treatment options of penile condylomas and risks and benefits of these treatment options. Discussed importance of trimming verses shaving Patient denies any bothersome urinary issues or concerns at this time. Patient reports be happy with current voiding parameters. Follow-up in 2 weeks for potential repeat; or sooner with any issues, concerns, and or questions. Orders: Orders AMB Urinalysis Automated Today Z13.9 - Encounter for screening, unspecified Patient Instructions: The patient had an opportunity to ask questions regarding the treatment plan. All questions were answered. Physical exam, labs, and imaging were discussed and reviewed in detail. As well as risks, benefits, and discussion of treatment choices. No major barriers to understanding were identified. The patient expressed understanding and agreement with the above treatment plan. The patient was made aware they should contact our office by phone for worsening of their current condition, the appearance of new symptoms, or with any questions or concerns. Compliance is encouraged with any medications and follow up testing that is ordered. It is a privilege to be allowed the opportunity to participate in? your urological care.? Again, if you have any questions or concerns If you have any questions or concerns please do not hesitate to contact me. The office is [phone]. This note is constructed using voice recognition software. While every effort has been made to ensure accuracy crutching contractor errors may have been included. Yours sincerely, ANGIE Polanco Coding Level of Care Code Est Pt Level 4 (69697) Diagnoses Warts, genital A63.0 Genital lesion, male N50.89 Time Spent (min) 25
== END 2024-08-23 16:42 | disposition home or self-care (01) ==
PROVIDERS: PCP Nurse Practitioner Family; Visit Provider Nurse Practitioner Family
DX: Z13.9 Encounter for screening, unspecified (principal)

== ENCOUNTER → 2024-08-23 15:44 | Outpatient (BNVA) | payer OTHER, SELFPAY | PROVIDERS: PCP Nurse Practitioner Family; Visit Provider Nurse Practitioner Family | DX: A63.0 Anogenital (venereal) warts (principal); N50.89 Other specified disorders of the male genital organs | CPT/HCPCS: 81003 ==

== ENCOUNTER 2024-09-04 08:43 | Outpatient (AMB) | payer OTHER, SELFPAY ==
--- NOTE | 2024-09-04 08:44 | A.OFFVIS_ITS ---
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 Crespo. He has a past medical history of anxiety, depression and alcohol dependence. He presents to the office today for follow-up of his genital warts. Of note, patient underwent in office cryotherapy of left-sided penile condyloma wart approximately 2 weeks ago. In discussion with the patient today he reports sh ortly after his visit here he noted condylomas fell off and there was an area that was open however this has since healed over. In assessment of the patient today cluster of penile lesions that were once present at left base measuring approximately 2-5 mm in size are no longer present. There are no open areas, drainage, and or lesions noted. Patient also with a history of left-sided penile condyloma removal with Dr. Olson 06/18/23 in minor surgery. He otherwise denies any bothersome urinary issues. When asked he denies urinary urgency, urinary frequency, incontinence, nocturia, hematuria, dysuria, foul smelling urine, changes to urinary stream, flank pain, fever, and or chills. He is happy with his current voiding parameters. Discussed importance of obtaining HPV immunization. Discussed trimming verses shaving in genital area. He otherwise offers no issues or concerns at this time. [facility] Medical History Depression Anxiety No known health problems Surgical History History of open reduction and internal fixation (ORIF) procedure Family History Mother Alcoholism Father Alcoholism Social History Housing: House Alcohol intake: current Alcohol intake frequency: 0-2 drinks per day Alcohol type: beer Patient Tobacco Use Status: Current someday Tobacco user Tobacco use type: Cigarette Cigarette Packs Per Day: 2 e-Cigarette/Vaping Use: Never Used Substance Use Type: Marijuana service: No Current occupational status: employed Cognitive needs: No Hearing needs: No Vision needs: No Review of Systems Eyes Reports no additional complaints ENT Reports no additional complaints Card Reports no additional complaints Resp Reports no additional complaints GI Reports no additional complaints Reports as per HPI Musc Reports no additional complaints Neuro Reports no additional complaints Psych Reports as per HPI Endo Reports no additional complaints Josh/Lymph Reports no additional complaints Aller/Immun Reports no additional complaints Physical Exam Const General: cooperative, healthy appearing, comfortable, no acute distress, well developed, alert and awake Nutritional Appearance: average body habitus Orientation/consciousness: patient oriented x3 Limitations: no limitations HEENT Head: Yes normal to inspection, Yes normocephalic and Yes atraumatic Ears: hearing grossly normal bilaterally Eyes General: appearance normal, both eyes and all related structures Neck Neck: Yes normal visual inspection and Yes trachea midline Chest Chest palpation & inspection: normal inspection of the chest Resp Effort & Inspection: normal respiratory effort and able to speak in complete sentences Cardio Rate: regular rate GI Inspection: Yes normal to inspection Other: as noted in HPI General: Yes no CVA tenderness Back/Spine/Pelvis Back: no CVA tenderness Skin General skin exam: no rashes or lesions noted Neuro General: patient oriented x3 Extrem General: Yes normal to inspection Psych Appearance: grossly normal and well kempt Mental Status: mental status grossly normal Speech and movement: Normal speech and movement present and Clear speech present Affect: normal affect Attitude: cooperative Thought process: Normal thought process present Thought content: Normal thought content present Insight: Good insight present (Psych) Judgement: Good judgement present (Psych) Assessment & Plan Assessment & Plan (1) Warts, genital: Code(s): A63.0 - Anogenital (venereal) warts Category: Medical (2) Genital lesion, male: Code(s): N50.89 - Other specified disorders of the male genital organs Category: Medical Plan Discussed obtaining HPV immunization. Discussed importance of trimming verses shaving. Patient denies any bothersome urinary issues or concerns at this time. Patient reports be happy with current voiding parameters. Follow-up p.r.n. Patient Instructions: The patient had an opportunity to ask questions regarding the treatment plan. All questions were answered. Physical exam, labs, and imaging were discussed and reviewed in detail. As well as risks, benefits, and discussion of treatment ch oices. No major barriers to understanding were identified. The patient expressed understanding and agreement with the above treatment plan. The patient was made aware they should contact our office by phone for worsening of their current condition, the appearance of new symptoms, or with any questions or concerns. Compliance is encouraged with any medications and follow up testing that is ordered. It is a privilege to be allowed the opportunity to participate in? your urological care.? Again, if you have any questions or concerns If you have any questions or concerns please do not hesitate to contact me. The office is [phone]. This note is constructed using voice recognition software. While every effort has been made to ensure accuracy clinical program consultant errors may have been included. Yours sincerely, ANGIE Polanco Coding Level of Care Code Est Pt Level 3 (61151) Diagnoses Warts, genital A63.0 Genital lesion, male N50.89
== END 2024-09-04 09:07 | disposition home or self-care (01) ==
PROVIDERS: PCP Nurse Practitioner Family; Visit Provider Nurse Practitioner Family
DX: A63.0 Anogenital (venereal) warts (principal); N50.89 Other specified disorders of the male genital organs
CPT/HCPCS: 99213

== ENCOUNTER → 2024-09-04 08:43 | Outpatient (BNVA) | payer OTHER, SELFPAY | PROVIDERS: PCP Nurse Practitioner Family; Visit Provider Nurse Practitioner Family ==

== ENCOUNTER 2024-10-03 09:50 | Outpatient (REF) | payer OTHER, SELFPAY | END 2024-10-03 09:51 | disposition home or self-care (01) | LOC: HO.LAB 09:50 | PROVIDERS: PCP Nurse Practitioner Family | DX: Z13.89 Encounter for screening for other disorder (principal) ==

== ENCOUNTER 2024-10-03 09:50 | Outpatient (AMB) | payer OTHER, SELFPAY ==
--- NOTE | 2024-10-03 11:15 | MHC.OFFWIV ---
Intake Vital Signs 10/03/24 11:16 Height 6 ft 4 in Weight 203 lb BMI 24.7 BP 106/72 Blood Pressure Location Lt brachial Position Sitting Pulse 105 H Pulse Source Pulse Oximeter Temp 102.2 F H Temp Source Oral Pulse Oximetry (%) 95 Oxygen Delivery Method Room Air Intake Visit Reasons: EP-fever, cough, sorethroat, headaches Intake Note: Pt is here today for a walk in visit. Pt c/o fever, chills body aches, cough headaches 3-4 weeks. Pt states that back in August he was seen at Urgent care and was told he had sinus infection and bronchitis but was not prescribed any antibiotics. Pt was advised to use otc meds which help a little but now all the symtoms are back and he is feeling worst. He can not sleep at night due to cough. Patient Tobacco Use Status: Current someday Tobacco user Allergies No Known Allergies Allergy (Verified 10/03/24 11:20) HPI HPI Comments History of Present Illness Details History - The patient is a 44-year-old male presenting with symptoms of worsening cough, fever, and concern for pneumonia. - Reports ongoing symptoms for three to four weeks initially diagnosed as sinusitis and bronchitis without antibiotic treatment advised. - Symptoms improved but worsened recently, experiencing increased cough disrupting sleep, with signs of dehydration and diminished oral intake. - The patient reports shortness of breath but denies any chronic pulmonary disorders. - Smoking cessation efforts underway, recently reduced smoking despite illness complications. - Infectious disease control concerns highlighted by related family infection prevention desires. Physical Exam General: Cooperative, healthy appearing, comfortable and no acute distress Orientation/consciousness: Patient oriented x3 Limitations: No limitations Head: Normal to inspection Ears: Hearing grossly normal bilaterally, external ears normal and right TM normal, Left TM with fluid Nose: Normal external nose present, Normal nares present and No nasal discharge present Face and sinus: Normal facial exam and Yes sinuses nontender. Mouth: Normal oral and palatal mucosa present and moist mucous membranes Throat: Yes tonsils normal, Yes uvula midline. Posterior oropharynx erythema Eyes: Appearance normal, both eyes and all related structures Neck: Normal visual inspection Respiratory: Clear but dim to auscultation bilaterally. No wheezing. Normal respiratory effort, able to speak in complete sentences, Actively coughing, no respiratory distress, not tachypneic, no tripod positioning and no use of accessory muscles. Cardiovascular: Regular rate and rhythm. Normal S1 and S2. Heart rate elevated at 105-106 bpm. Skin: No rashes or lesions noted Neuro: Patient oriented x3 Extremities: Normal to inspection and Yes no clubbing, cyanosis or edema FOR[facility]LY [facility] Medical History Depression Anxiety No known health problems Surgical History History of open reduction and internal fixation (ORIF) procedure Family History Mother Alcoholism Father Alcoholism Social History Housing: House Alcohol intake: current Alcohol intake frequency: 0-2 drinks per day Alcohol type: beer Patient Tobacco Use Status: Current someday Tobacco user Tobacco use type: Cigarette Cigarette Packs Per Day: 2 e-Cigarette/Vaping Use: Never Used Substance Use Type: Marijuana service: No Current occupational status: employed Cognitive needs: No Hearing needs: No Vision needs: No Review of Systems Const All systems reviewed & are unremarkable except as noted in HPI and below Physical Exam Vital Signs: Last Vital Signs Temp 102.2 F H 10/03/24 11:16 Pulse 105 H 10/03/24 11:16 BP 106/72 10/03/24 11:16 Pulse Ox 95 10/03/24 11:16 Oxygen Delivery Method Room Air 10/03/24 11:16 BMI result Body Mass Index 24.7 Assessment & Plan Assessment & Plan (1) Lower respiratory infection (e.g., bronchitis, pneumonia, pneumonitis, pulmonitis): Code(s): J22 - Unspecified acute lower respiratory infection Plan: Plan Elevation in heart rate likely 2/2 fever. Treatment was initiated with methylprednisolone to manage airway inflammation along with a Z-Feng azithromycin to cover potential atypical bacterial pneumonia, with plans for a follow-up chest x-ray. Benzonatate is prescribed for nighttime cough suppression. An albuterol inhaler is provided for shortness of breath control. Testing for flu, RSV, and COVID-19 has been implemented to evaluate viral infection status. The patient is advised to increase hydration and to take steroids in the morning to prevent sleep disruption. Tobacco cessation is encouraged, avoiding nicotine substitutes to avoid habit replacement. Follow-up consists of evaluating diagnostic results, imaging findings, and symptom changes. Patient was informed and verbally consented to the use of an ambient scribe for clinic note documentation during this visit Orders: Orders SARS-CoV2/FLU/RSV Today R09.89 - Other specified symptoms and signs involving the circulatory and respiratory systems XR chest 2V Today R05.9 - Cough, unspecified Medications: New benzonatate 200 mg PO TID PRN 10 caps 0RF cough methylprednisolone PO PER PKG DIR for 6 days 21 ea 0RF azithromycin For 250 mg dose pack: take 500 mg today (day 1), then 250 mg for 4 days (days 2-5) PO 6 tabs 0RF albuterol sulfate 90 mcg/actuation 2 puffs inhalation Q6H PRN 8.5 grams 0RF shortness of breath or wheezing or cough Coding Level of Care Code Est Pt Level 4 (07960) Diagnoses Lower respiratory infection (e.g., bronchitis, pneumonia, pneumonitis, pulmonitis) J22
[2024-10-03 11:16] VITALS: BP 106/72; PULSE 105; TEMP 39; O2SAT 95; BMI 24.7
== END 2024-10-03 12:02 | disposition home or self-care (01) ==
PROVIDERS: PCP Nurse Practitioner Family; Visit Provider Physician Assistant
DX: J22 Unspecified acute lower respiratory infection (principal)

== ENCOUNTER 2024-10-03 11:54 | Outpatient (REF) | payer OTHER, SELFPAY ==
--- NOTE | ~2024-10-03 | XR_ITS ---
EXAMINATION: XR CHEST CLINICAL INFORMATION: R05.9 - Cough, unspecified COMPARISON: X-ray dated September 26, 2022. TECHNIQUE: 2 views of the chest were obtained. FINDINGS: No consolidation pleural effusion or pneumothorax. No hyperinflation. Increased AP diameter of the thorax. Cardiomediastinal silhouette is normal. Osseous structures are grossly intact. XR/XR chest 2V IMPRESSION: No acute airspace disease. Electronically signed by: Walt Garcia MD 10/03/2024 12:44 PM [id number]
[2024-10-03 14:15] LABS: Influenza A PCR POSITIVE (Negative); Influenza B PCR NEGATIVE (Negative); Resp Syncy Virus RNA Qual PCR NEGATIVE (Negative); SARS COV2 PCR INHOUSE NEGATIVE (Negative)
== END 2024-10-03 11:55 | disposition home or self-care (01) ==
LOC: HO.HMGCX 11:54
PROVIDERS: PCP Nurse Practitioner Family; Visit Provider Physician Assistant
DX: R05.9 Cough, unspecified (principal); R09.89 Other specified symptoms and signs involving the circulatory and respiratory systems
CPT/HCPCS: 0241U; 71046

== ENCOUNTER → 2024-10-03 11:57 | Outpatient (BNV) | payer OTHER, SELFPAY | PROVIDERS: PCP Nurse Practitioner Family; Visit Provider Radiology Diagnostic Radiology | DX: R05.9 Cough, unspecified (principal) | CPT/HCPCS: 71046 ==

== ENCOUNTER → 2024-10-20 09:54 | Outpatient (BNVA) | payer OTHER, SELFPAY | PROVIDERS: PCP Nurse Practitioner Family; Visit Provider Physical Medicine & Rehabilitation | DX: S16.1XXA Strain of muscle, fascia and tendon at neck level, initial encounter (principal); M79.18 Myalgia, other site; M47.812 Spondylosis without myelopathy or radiculopathy, cervical region | CPT/HCPCS: 99202 ==